=== PATIENT | male | born 1945 | race Hispanic/Latino ===

== ENCOUNTER 2018-12-13 11:38 | Emergency (ER) | payer MEDICARE, OTHER ==
--- OUTSIDE RECORDS SUMMARY | 2018-12-13 11:40 | XMS REPORT ---
:1945 [facility] Address [address] [place] [address] [address] [place] [address] Care Team Providers Name Role Phone Unavailable Unavailable Unavailable Problems This patient has no known problems. Allergies, Adverse Reactions, Alerts This patient has no known allergies or adverse reactions. Medications This patient has no known medications.
[2018-12-13] MEDS ORDERED: NA CHLORIDE 0.9% 1,000 ML ONE (12:11)
--- NOTE | 2018-12-13 12:26 | RAD REPORT ---
EXAM DESCRIPTION: CT - Head Brain Wo Cont - 12/13/2018 12:18 pm CLINICAL HISTORY: Dizziness COMPARISON: None. TECHNIQUE: Computed axial tomography of the head was obtained. IV contrast was not requested. All CT scans are performed using dose optimization technique as appropriate and may include automated exposure control or mA/KV adjustment according to patient size. FINDINGS: An intracranial bleed is not seen . The ventricles are normal in caliber. No extra-axial fluid collection is noted. Fluid within the sinuses/ mastoids is not seen. IMPRESSION: No acute intracranial abnormality is seen. If patient's symptoms persist MRI of the bra in would be recommended.
[2018-12-13 12:28] LABS: Absolute Lymphocytes (CBC) 0.6 K/uL (0.7-4.9); Absolute Monocytes 0.2 K/uL (0.1-1.3); Absolute Neutrophil 2.1 K/uL (1.8-8.0); Basophils % 0.3 % (0-1.3); Hematocrit 43.8 % (39.6-49.0); Lymphocytes % 21.6 % (15.3-44.8); MPV 9.9 fL (7.6-11.3); Monocytes % 6.1 % (3.3-12.3); RBC Red Blood Cell Count 5.09 M/uL (4.33-5.43)
[2018-12-13 12:43] LABS: Potassium 3.7 mmol/L (3.5-5.1)
[2018-12-13 13:50] LABS: Urine Blood NEGATIVE (NEG); Urine Glucose NEGATIVE (NEG); Urine Protein NEGATIVE (NEG); Urine Specific Gravity 1.005 (1.005-1.030); Urine pH 5.5 (5.0-7.0)
[2018-12-13 14:07] LABS: Urine Bacteria NONE SEEN /HPF (NONE SEEN); Urine Culture Reflex Order NOT NEEDED; Urine RBC <5 /HPF (NONE SEEN)
--- NOTE | 2018-12-13 14:42 | EDPHYS ---
Physician Documentation [facility] Name: Rudy Mirza Age: 73 yrs Sex: Male : 1945 Arrival Date: 12/13/2018 Time: 11:39 Bed 8 Private MD: ED Physician Max Potter HPI: 12/13 13:20 This 73 yrs old Male presents to ER via Wheelchair with complaints of High rn Blood Pressure, Dizziness. 13:20 The patient presents with dizziness, lightheadedness. Onset: The symptoms/episode rn began/occurred this morning. Modifying factors: The symptoms are alleviated by nothing, the symptoms are aggravated by standing up. Severity of symptoms: At their worst the symptoms were mild in the emergency department the symptoms are unchanged. The patient has not experienced similar symptoms in the past. REports dizziness that began this morning, worse with standing/changing position, no fever/cough/chest pain/abd pain. Reports blood sugar has been around 180 lately with increased urination. Drinks a lot of diet coke but not much water. Denies focal weakness. Reports intermittent pain from arthritis and right leg gives him problems. NO head injury. . 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 - Social history:: Smoking status: Patient/guardian denies using tobacco. - Family history:: not pertinent. - Ebola Screening: : Patient negative for fever greater than or equal to 101.5 degrees Fahrenheit, and additional compatible Ebola Virus Disease symptoms Patient denies exposure to infectious person Patient denies travel to an Ebola-affected area in the 21 days before illness onset No symptoms or risks identified at this time. - Hospitalizations: : No recent hospitalization is reported. ROS: 13:20 Constitutional: Negative for fever, chills, and weight loss, Eyes: Negative for injury, rn pain, redness, and discharge, Neck: Negative for injury, pain, and swelling, Cardiovascular: Negative for chest pain, palpitations, and edema, Respiratory: Negative for shortness of breath, cough, wheezing, and pleuritic chest pain, Abdomen/GI: Negative for abdominal pain, nausea, vomiting, diarrhea, and constipation, MS/Extremity: Negative for injury and deformity, Skin: Negative for injury, rash, and discoloration, Neuro: Negative for headache, numbness, tingling, and seizure, + generalized weakness Exam: 13:20 Constitutional: This is a well developed, well nourished patient who is awake, alert, rn and in no acute distress. Head/Face: Normocephalic, atraumatic. Eyes: Pupils equal round and reactive to light, extra-ocular motions intact. Lids and lashes normal. Conjunctiva and sclera are non-icteric and not injected. Cornea within normal limits. Periorbital areas with no swelling, redness, or edema. ENT: dry MM Neck: Trachea midline, no thyromegaly or masses palpated, and no cervical lymphadenopathy. Supple, full range of motion without nuchal rigidity, or vertebral point tenderness. No Meningismus. Cardiovascular: Regular rate and rhythm. No pulse deficits. Respiratory: Lungs have equal breath sounds bilaterally, clear to auscultation. No increased work of breathing, no retractions or nasal flaring. Abdomen/GI: soft, non-tender MS/ Extremity: Pulses equal, no cyanosis. Neurovascular intact. Full, normal range of motion. Equal circumference. Neuro: Awake and alert, GCS 15, oriented to person, place, time, and situation. Cranial nerves II-XII grossly intact. Motor strength 4/5 in all extremities. Sensory grossly intact. Cerebellar exam normal. Slow but normal gait. Vital Signs: 11:59 BP 190 / 87; Pulse 61; Resp 18; Temp 98; Pulse Ox 97% ; Weight 75.3 kg; Height 5 ft. 7 sv in. (170.18 cm); Pain 0/10; 13:15 BP 138 / 63; Pulse 71; Resp 16; Pulse Ox 97% on R/A; iw 11:59 Body Mass Index 26.00 (75.30 kg, 170.18 cm) sv MDM: 11:45 Patient medically screened. rn 14:39 Differential diagnosis: generalized weakness, hypovolemia, idiopathic dizziness, rn near-syncope. Data reviewed: vital signs, nurses notes, lab test result(s), EKG, radiologic studies, CT scan, and as a result, I will discharge patient. Counseling: I had a detailed discussion with the patient and/or guardian regarding: the historical points, exam findings, and any diagnostic results supporting the discharge/admit diagnosis, lab results, radiology results, the need for outpatient follow up, to return to the emergency department if symptoms worsen or persist or if there are any questions or concerns that arise at home. Response to treatment: the patient's symptoms have markedly improved after treatment, and as a result, I will discharge patient. Special discussion: I discussed with the patient/guardian in detail that at this point there is no indication for admission to the hospital. It is understood, however, that if the symptoms persist or worsen the patient needs to return immediately for re-evaluation. ED course: Pt ambulatory, negative w/u, will dc home as dehydration and chronic problems. No focal findings on neuro exam and ct head negative. . 12/13 11:56 Order name: CBC with Diff; Complete Time: 13:20 rn 12/13 11:56 Order name: Basic Metabolic Panel; Complete Time: 13:20 rn 12/13 11:56 Order name: CT Head Brain wo Cont; Complete Time: 12:38 rn 12/13 11:56 Order name: Urine Microscopic Only; Complete Time: 14:09 rn 12/13 12:14 Order name: Glucose, Ancillary Testing; Complete Time: 12:38 EDAK 12/13 13:19 Order name: Urine Dipstick--Ancillary (enter results); Complete Time: 13:53 12/13 11:56 Order name: IV Start; Complete Time: 13:35 rn 12/13 11:56 Order name: EKG; Complete Time: 11:57 rn 12/13 11:56 Order name: EKG - Nurse/Tech; Complete Time: 13:34 rn 12/13 11:56 Order name: Glucose Level; Complete Time: 13:34 rn 12/13 11:56 Order name: Urine Dipstick-Ancillary (obtain specimen); Complete Time: 13:16 rn Administered Medications: 12:31 Drug: NS 0.9% 1000 ml Route: IV; Rate: 1000 ml; Site: right antecubital; iw 13:35 Follow up: Response: No adverse reaction; IV Intake: 1000ml sg Disposition: 12/13/18 14:41 Discharged to Home. Impression: Dizziness and giddiness, Dehydration. - Condition is Stable. - Discharge Instructions: Dehydration, Adult, Dizziness. - Medication Reconciliation Form, Thank You Letter, Antibiotic Education, Prescription Opioid Use form. - Follow up: Private Physician; When: As needed; Reason: Recheck today's complaints, Re-evaluation by your physician. - Problem is new. - Symptoms have improved. Signatures: Dispatcher [employer] EDJacinda Castellano RN RN Serina Arevalo RN RN iw Max Potter MD MD rn Gay, Steven RN sg Corrections: (The following items were deleted from the chart) 14:54 14:41 12/13/2018 14:41 Discharged to Home. Impression: Dizziness and giddiness; iw Dehydration. Condition is Stable. Forms are Medication Reconciliation Form, Thank You Letter, Antibiotic Education, Prescription Opioid Use. Follow up: Private Physician; When: As needed; Reason: Recheck today's complaints, Re-evaluation by your physician. Problem is new. Symptoms have improved. rn
--- NOTE | 2018-12-13 14:42 | ER ---
Nurse's Notes [facility] Name: Rudy Mirza Age: 73 yrs Sex: Male : 1945 Arrival Date: 12/13/2018 Time: 11:39 Bed 8 Private MD: Diagnosis: Dizziness and giddiness;Dehydration Presentation: 12/13 11:43 Presenting complaint: Patient states: HTN, dizziness, right side chest pain, sv generalized weakness, nausea since today. Son reports forgetfulness x 1 month. Pt states his right arm and leg weakness has been going on for 2 months intermittently. Transition of care: patient was not received from another setting of care. Onset of symptoms was December 13, 2018. Initial Sepsis Screen: Does the patient meet any 2 criteria? No. Patient's initial sepsis screen is negative. Does the patient have a suspected source of infection? No. Patient's initial sepsis screen is negative. Care prior to arrival: None. 11:43 Method Of Arrival: Wheelchair sv 11:43 Acuity: KARUNA 2 sv 12:00 Risk Assessment: Do you want to hurt yourself or someone else? Patient reports no iw desire to harm self or others. 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 - Social history:: Smoking status: Patient/guardian denies using tobacco. - Family history:: not pertinent. - Ebola Screening: : Patient negative for fever greater than or equal to 101.5 degrees Fahrenheit, and additional compatible Ebola Virus Disease symptoms Patient denies exposure to infectious person Patient denies travel to an Ebola-affected area in the 21 days before illness onset No symptoms or risks identified at this time. - Hospitalizations: : No recent hospitalization is reported. Screenin:40 Abuse screen: Denies threats or abuse. Denies injuries from another. Nutritional iw screening: No deficits noted. Tuberculosis screening: No symptoms or risk factors identified. 14:54 Fall Risk None identified. iw Assessment: 12:25 General: Appears in no apparent distress. comfortable, well groomed, well developed, sg well nourished, Behavior is calm, cooperative, appropriate for age, quiet. Pain: Denies pain. Neuro: Reports dizziness, headache. Neuro: Level of Consciousness is awake, alert, obeys commands, Oriented to person, place, time, situation, Green[employer] are equal bilaterally Moves all extremities. Full function Gait is steady, Speech is normal, Facial symmetry appears normal. Cardiovascular: Capillary refill is brisk in bilateral fingers Patient's skin is warm and dry. Chest pain is denied. Respiratory: Airway is patent Respiratory effort is even, unlabored, Respiratory pattern is regular, symmetrical. GI: Abdomen is round non-distended, Bowel sounds present X 4 quads. : No signs and/or symptoms were reported regarding the genitourinary system. EENT: No signs and/or symptoms were reported regarding the EENT system. Derm: Skin is intact, is thin, Skin is dry, Skin is normal, Skin temperature is warm. Musculoskeletal: Circulation, motion, and sensation intact. Range of motion: intact in all extremities. 14:10 Reassessment: Patient appears in no apparent distress at this time. Patient and/or iw family updated on plan of care and expected duration. Pain level reassessed. Patient is alert, oriented x 3, equal unlabored respirations, skin warm/dry/pink. pt ambulatory to bathroom with steady gait, family at bedside. Vital Signs: 11:59 BP 190 / 87; Pulse 61; Resp 18; Temp 98; Pulse Ox 97% ; Weight 75.3 kg; Height 5 ft. 7 sv in. (170.18 cm); Pain 0/10; 13:15 BP 138 / 63; Pulse 71; Resp 16; Pulse Ox 97% on R/A; iw 11:59 Body Mass Index 26.00 (75.30 kg, 170.18 cm) sv ED Course: 11:39 Patient arrived in ED. as 11:45 Max Potter MD is Attending Physician. rn 11:58 Triage completed. sv 11:59 Arm band placed on. sv 12:00 Patient has correct armband on for positive identification. iw 12:04 EKG done, by public health technician. reviewed by Max Potter MD. sm3 12:18 CT Head Brain wo Cont In Process Unspecified. EDMS 12:30 Initial lab(s) drawn, by fl, sent to lab. Inserted saline lock: 20 gauge in right iw antecubital area, using aseptic technique. Blood collected. 12:31 Serina Jaramillo, RN is Primary Nurse. iw 14:52 No provider procedures requiring assistance completed. IV discontinued, intact, iw bleeding controlled, No redness/swelling at site. Pressure dressing applied. Administered Medications: 12:31 Drug: NS 0.9% 1000 ml Route: IV; Rate: 1000 ml; Site: right antecubital; iw 13:35 Follow up: Response: No adverse reaction; IV Intake: 1000ml sg Intake: 13:35 IV: 1000ml; Total: 1000ml. sg Outcome: 14:41 Discharge ordered by . rn 14:52 Discharged to home ambulatory, with family. iw 14:52 Condition: good 14:52 Discharge instructions given to patient, Instructed on discharge instructions, follow up and referral plans. Demonstrated understanding of instructions, follow-up care. 14:54 Patient left the ED. iw Signatures: Dispatcher [employer] EDMS Jacinda Jefferson RN RN Stewart Petersen RN RN sg Martinez, Amelia as Williams, Irene, GRZEGORZ LANTIGUA Max Potter MD MD rn Montes, Shakira 3
--- NOTE | 2018-12-13 15:16 | EKG ---
Test Date: 2018-12-13 Test Time: 12:04:18 Administrative Asst: JAYDE MEASUREMENT RESULTS: Intervals: Rate: 53 AR: 156 QRSD: 96 QT: 456 QTc: 427 [place]: P: 14 AR: 156 QRS: 83 T: 44 INTERPRETIVE STATEMENTS: Sinus bradycardia Otherwise normal ECG No previous ECG available for comparison Electronically Signed On 12-13-18 15:15:27 CDT by Joaquin Khan
== END 2018-12-13 14:54 | disposition home or self-care (01) ==
LOC: ER 11:38
DX: R42 Dizziness and giddiness (principal); E86.0 Dehydration; E11.9 Type 2 diabetes mellitus without complications; I10 Essential (primary) hypertension
CPT/HCPCS: 93005; 85025; 80048; 36415; 82962; 70450; 99284; J7030; 81003; 81015

== ENCOUNTER 2019-03-01 09:50 | Emergency (ER) | payer MEDICARE ==
--- OUTSIDE RECORDS SUMMARY | 2019-03-01 09:52 | XMS REPORT ---
:1945 [facility] Address [address] [place] [address] [address]. [address] [place] [address] Care Team Providers Name Role Phone Unavailable Unavailable Unavailable Problems This patient has no known problems. Allergies, Adverse Reactions, Alerts This patient has no known allergies or adverse reactions. Medications This patient has no known medications.
[2019-03-01 10:23] LABS: Basophils % 0.4 % (0-1.3); Eosinophils % 2.5 % (0-4.4); Hematocrit 43.3 % (39.6-49.0); Lymphocytes % 34.3 % (15.3-44.8); MPV 9.8 fL (7.6-11.3); RBC Red Blood Cell Count 5.04 M/uL (4.33-5.43)
[2019-03-01] MEDS ORDERED: ASPIRIN EC 81 MG TAB PO ONE (10:25)
[2019-03-01] MEDS ORDERED: ONDANSETRON 4 MG/2 ML VIAL ONE (10:25)
[2019-03-01 10:39] LABS: ALT/SGPT 113 U/L (12-78); AST/SGOT 98 U/L (15-37); Albumin 3.4 g/dL (3.4-5.0); Alkaline Phosphatase 213 U/L (45-117); BUN Blood Urea Nitrogen 20 mg/dL (7-18); Bicarbonate 26 mmol/L (21-32); Bilirubin Direct 0.2 mg/dL (0-0.2); Bilirubin Total 0.7 mg/dL (0.2-1.0); Glucose Level 153 mg/dL (74-106); NT PRO-BNP 130 pg/mL (<125); Potassium 4.1 mmol/L (3.5-5.1); Protein, Total 7.7 g/dL (6.4-8.2); Sodium Level 141 mmol/L (136-145); Troponin (Emerg Dept Use Only) < 0.02 ng/mL (0.0-0.045)
--- NOTE | 2019-03-01 11:29 | RAD REPORT ---
EXAM DESCRIPTION: Joey Single View03/01/2019 10:17 am CLINICAL HISTORY: Chest pain COMPARISON: none FINDINGS: A few areas of scarring or subsegmental atelectasis within the lungs Otherwise, the lungs bold appear clear of acute infiltrate. The heart is borderline enlarged. Postsur gical changes involve the chest
--- NOTE | 2019-03-01 11:53 | EDPHYS ---
Physician Documentation [facility] Name: Rudy Mirza Age: 73 yrs Sex: Male : 1945 Arrival Date: 03/01/2019 Time: 09:52 Bed 4 Private MD: ED Physician Mich Beal HPI: 03/01 10:09 This 73 yrs old Male presents to ER via Wheelchair with complaints of Chest kb Pain, Nausea. 10:09 The patient or guardian reports chest pain that is located primarily in the anterior kb chest wall, left. Onset: yesterday. The pain radiates to the left shoulder, right side of chest. Associated signs and symptoms: Pertinent positives: nausea, Pertinent negatives: abdominal pain, cough, diaphoresis, dizziness, headache, lower extremity pain, lower extremity swelling, lightheadedness, near syncope, palpitations, recent travel, shortness of breath, syncope, vomiting. The chest pain is described as a heaviness. Duration: The patient or guardian reports a single episode, that is still ongoing. Modifying factors: The symptoms are alleviated by nothing. the symptoms are aggravated by nothing. Severity of pain: At its worst the pain was moderate in the emergency department the pain is unchanged. The patient has experienced similar episodes in the past. The patient has not recently seen a physician. Pt reports chest pain that started yesterday. STates he had his first MN at age 42 and his father of a MN at age 43. Has had 3 bypasses and 6 stents placed in the past. Pt reports this pain is similar to pain he has had before. . 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 - Social history:: Smoking status: Patient/guardian denies using tobacco. - Ebola Screening: : Patient denies travel to an Ebola-affected area in the 21 days before illness onset. ROS: 10:08 Constitutional: Negative for fever, chills, and weight loss, ENT: Negative for injury, kb pain, and discharge, Neck: Negative for injury, pain, and swelling, Respiratory: Negative for shortness of breath, cough, wheezing, and pleuritic chest pain, Back: Negative for injury and pain, MS/Extremity: Negative for injury and deformity, Skin: Negative for injury, rash, and discoloration, Neuro: Negative for headache, weakness, numbness, tingling, and seizure. 10:08 Cardiovascular: Positive for chest pain, Negative for edema, orthopnea, palpitations, paroxysmal nocturnal dyspnea. 10:08 Abdomen/GI: Positive for nausea. Exam: 10:08 Constitutional: This is a well developed, well nourished patient who is awake, alert, kb and in no acute distress. Head/Face: Normocephalic, atraumatic. ENT: Nares patent. No nasal discharge, no septal abnormalities noted. Tympanic membranes are normal and external auditory canals are clear. Oropharynx with no redness, swelling, or masses, exudates, or evidence of obstruction, uvula midline. Mucous membranes moist. Neck: Trachea midline, no thyromegaly or masses palpated, and no cervical lymphadenopathy. Supple, full range of motion without nuchal rigidity, or vertebral point tenderness. No Meningismus. Chest/axilla: Normal chest wall appearance and motion. Nontender with no deformity. No lesions are appreciated. Cardiovascular: Regular rate and rhythm with a normal S1 and S2. No gallops, murmurs, or rubs. Normal PMI, no JVD. No pulse deficits. Respiratory: Lungs have equal breath sounds bilaterally, clear to auscultation and percussion. No rales, rhonchi or wheezes noted. No increased work of breathing, no retractions or nasal flaring. Abdomen/GI: Soft, non-tender, with normal bowel sounds. No distension or tympany. No guarding or rebound. No evidence of tenderness throughout. Back: No spinal tenderness. No costovertebral tenderness. Full range of motion. Skin: Warm, dry with normal turgor. Normal color with no rashes, no lesions, and no evidence of cellulitis. MS/ Extremity: Pulses equal, no cyanosis. Neurovascular intact. Full, normal range of motion. Neuro: Awake and alert, GCS 15, oriented to person, place, time, and situation. Cranial nerves II-XII grossly intact. Motor strength 5/5 in all extremities. Sensory grossly intact. Cerebellar exam normal. Normal gait. Vital Signs: 09:57 BP 166 / 83; Pulse 63; Resp 18; Temp 97.7; Pulse Ox 97% on R/A; Weight 78.02 kg (R); aj1 Height 5 ft. 7 in. (170.18 cm) (R); Pain 5/10; 10:04 BP 167 / 73; Pulse 57; Resp 18; Pulse Ox 96% on R/A; hj 11:08 BP 117 / 65; Pulse 57; Resp 18; Pulse Ox 96% on R/A; hj 11:53 BP 101 / 49; Pulse 49; Resp 18; Pulse Ox 94% on R/A; hj 12:39 BP 119 / 68; Pulse 48; Resp 18; Pulse Ox 98% on 2 lpm NC; hj 13:23 BP 118 / 70; Pulse 50; Resp 18; Pulse Ox 97% on R/A; hj 09:57 Body Mass Index 26.94 (78.02 kg, 170.18 cm) aj1 MDM: 09:58 Patient medically screened. kb 10:09 Data reviewed: vital signs, nurses notes. Data interpreted: Pulse oximetry: on room air kb is 96 %. Interpretation: normal. 10:17 The patient was given aspirin in the Emergency Department. PAULETTE Risk Score: 1 - kb patient's age is greater or equal to 65 years, 1- Known CAD, 1 - ASA use in past 7 days, TOTAL SCORE = 3. 10:57 Counseling: I had a detailed discussion with the patient and/or guardian regarding: the kb historical points, exam findings, and any diagnostic results supporting the discharge/admit diagnosis, lab results, radiology results, the need for further work-up and treatment in the hospital. Physician consultation: Latasha Larsen MD was contacted at 11:00, regarding admission, to the telemetry unit. patient's condition, would like cardiology consulted about admission first. ED course: Pain resolved after nitro. . ED course: HEART score 5. . 11:17 Physician consultation: Ko Oseguera MD was called at 11:06, message left with kb answering service. 12:40 ED course: Dr Oseguera wants troponin repeated now. If still normal pt to be discharged kb home to follow up as outpatient.. 13:12 Counseling: I had a detailed discussion with the patient and/or guardian regarding: the kb need for outpatient follow up, a automatic head sawyer, a family practitioner, to return to the emergency department if symptoms worsen or persist or if there are any questions or concerns that arise at home. 03/01 10:05 Order name: Basic Metabolic Panel kb 03/01 10:05 Order name: CBC with Diff; Complete Time: 10:39 kb 03/01 10:05 Order name: LFT's; Complete Time: 10:40 kb 03/01 10:05 Order name: Magnesium; Complete Time: 10:40 kb 03/01 10:05 Order name: NT PRO-BNP; Complete Time: 10:40 kb 03/01 10:05 Order name: PT-INR; Complete Time: 10:39 kb 03/01 10:05 Order name: Troponin (emerg Dept Use Only); Complete Time: 10:40 kb 03/01 10:05 Order name: XRAY Chest (1 view); Complete Time: 11:43 kb 03/01 10:06 Order name: Basic Metabolic Panel; Complete Time: 10:40 EDMS 03/01 11:26 Order name: Urine Dipstick--Ancillary (enter results); Complete Time: 13:17 hb 03/01 12:39 Order name: Troponin (emerg Dept Use Only); Complete Time: 13:11 kb 03/01 10:05 Order name: EKG; Complete Time: 10:07 kb 03/01 10:05 Order name: Cardiac monitoring; Complete Time: 10:07 kb 03/01 10:05 Order name: EKG - Nurse/Tech; Complete Time: 10:07 kb 03/01 10:05 Order name: IV Saline Lock; Complete Time: 10:06 kb 03/01 10:05 Order name: Labs collected and sent; Complete Time: 10:06 kb 03/01 10:05 Order name: O2 Per Protocol; Complete Time: 10:06 kb 03/01 10:05 Order name: O2 Sat Monitoring; Complete Time: 10:06 kb 03/01 11:18 Order name: Urine Dipstick-Ancillary (obtain specimen); Complete Time: 11:19 kb 03/01 12:39 Order name: EKG; Complete Time: 12:39 kb 03/01 12:39 Order name: EKG - Nurse/Tech; Complete Time: 12:39 kb Administered Medications: 10:05 Drug: Aspirin Chewable Tablet 243 mg Route: PO; 10:31 Follow up: Response: No adverse reaction hj 10:06 Drug: Zofran 4 mg Route: IVP; Site: right antecubital; hj 10:31 Follow up: Response: No adverse reaction hj 10:44 Drug: Nitroglycerin 0.4 mg Route: Sublingual; hj 11:12 Follow up: Response: No adverse reaction; Pain is decreased hj Disposition: 18:02 Co-signature as Attending Physician, Mich Beal MD. Disposition: 03/01/19 13:12 Discharged to Home. Impression: Chest pain, unspecified. - Condition is Stable. - Discharge Instructions: Nonspecific Chest Pain, [id number]. - Medication Reconciliation Form, Thank You Letter, Antibiotic Education, Prescription Opioid Use form. - Follow up: Emergency Department; When: As needed; Reason: Worsening of condition. Follow up: Private Physician; When: 2 - 3 days; Reason: Recheck today's complaints, Continuance of care, Re-evaluation by your physician. Signatures: Dispatcher [employer] EDAR Chandni Foster, ROLL CLAMP OPERATOR-C ROLL CLAMP OPERATOR-Ckb Nisha Pfeiffer RN RN aj1 Chuy Justin RN RN Paradise Vera RN RN Mich Beal MD MD Corrections: (The following items were deleted from the chart) 13:12 11:52 Hospitalization Ordered by Latasha Larsen MD for Observation. Preliminary kb diagnosis is Chest pain, unspecified. Bed requested for Telemetry/MedSurg (observation). Status is Observation. Condition is Stable. Problem is new. Symptoms have improved. UTI on Admission? No. kb 13:28 13:12 03/01/2019 13:12 Discharged to Home. Impression: Chest pain, unspecified. Condition is Stable. Forms are Medication Reconciliation Form, Thank You Letter, Antibiotic Education, Prescription Opioid Use. Follow up: Emergency Department; When: As needed; Reason: Worsening of condition. Follow up: Private Physician; When: 2 - 3 days; Reason: Recheck today's complaints, Continuance of care, Re-evaluation by your physician. kb
--- NOTE | 2019-03-01 11:53 | ER ---
Nurse's Notes [facility] Name: Rudy Mirza Age: 73 yrs Sex: Male : 1945 Arrival Date: 03/01/2019 Time: 09:52 Bed 4 Private MD: Diagnosis: Chest pain, unspecified Presentation: 03/01 09:57 Presenting complaint: Patient states: Left sided chest pain, nausea, and numbness to aj1 the left arm that started yesterday at 1500. Transition of care: patient was not received from another setting of care. Onset of symptoms was February 28, 2019 at 15:00. Risk Assessment: Do you want to hurt yourself or someone else? Patient reports no desire to harm self or others. Initial Sepsis Screen: Does the patient meet any 2 criteria? No. Patient's initial sepsis screen is negative. Does the patient have a suspected source of infection? No. Patient's initial sepsis screen is negative. Care prior to arrival: None. 09:57 Method Of Arrival: Wheelchair aj1 09:57 Acuity: KARUNA 2 aj1 Triage Assessment: 09:57 General: Appears uncomfortable, Behavior is calm, cooperative, appropriate for age. aj1 Pain: Complains of pain in anterior aspect of left upper chest. Neuro: Level of Consciousness is awake, alert, obeys commands. Cardiovascular: Reports chest pain. Respiratory: Airway is patent Respiratory effort is even, unlabored, Respiratory pattern is regular, symmetrical. Derm: Skin is pale. 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 - Social history:: Smoking status: Patient/guardian denies using tobacco. - Ebola Screening: : Patient denies travel to an Ebola-affected area in the 21 days before illness onset. Screenin:58 Abuse screen: Denies threats or abuse. Denies injuries from another. Nutritional hb screening: No deficits noted. Tuberculosis screening: No symptoms or risk factors identified. Fall Risk None identified. Assessment: 09:59 General: Appears in no apparent distress. uncomfortable, Behavior is calm, cooperative, hj appropriate for age. Pain: Complains of pain in chest Pain radiates to back and left arm Pain began 1 day ago. Neuro: Level of Consciousness is awake, alert, obeys commands, Oriented to person, place, time, situation, Appropriate for age. Cardiovascular: Capillary refill < 3 seconds Patient's skin is warm and dry. Respiratory: Airway is patent Respiratory effort is even, unlabored, Respiratory pattern is regular, symmetrical. GI: No signs and/or symptoms were reported involving the gastrointestinal system. : No signs and/or symptoms were reported regarding the genitourinary system. EENT: No signs and/or symptoms were reported regarding the EENT system. Derm: No signs and/or symptoms reported regarding the dermatologic system. Musculoskeletal: No signs and/or symptoms reported regarding the musculoskeletal system. 10:25 Reassessment: faxed order to pharm for nitro 0.4 mg;. hj 11:53 Reassessment: Patient and/or family updated on plan of care and expected duration. Pain hj level reassessed. Patient is alert, oriented x 3, equal unlabored respirations, skin warm/dry/pink. pt for admit;. 12:38 Reassessment: Patient and/or family updated on plan of care and expected duration. Pain hj level reassessed. Patient is alert, oriented x 3, equal unlabored respirations, skin warm/dry/pink. awaiting room placement;. Vital Signs: 09:57 BP 166 / 83; Pulse 63; Resp 18; Temp 97.7; Pulse Ox 97% on R/A; Weight 78.02 kg (R); aj1 Height 5 ft. 7 in. (170.18 cm) (R); Pain 5/10; 10:04 BP 167 / 73; Pulse 57; Resp 18; Pulse Ox 96% on R/A; hj 11:08 BP 117 / 65; Pulse 57; Resp 18; Pulse Ox 96% on R/A; hj 11:53 BP 101 / 49; Pulse 49; Resp 18; Pulse Ox 94% on R/A; hj 12:39 BP 119 / 68; Pulse 48; Resp 18; Pulse Ox 98% on 2 lpm NC; hj 13:23 BP 118 / 70; Pulse 50; Resp 18; Pulse Ox 97% on R/A; hj 09:57 Body Mass Index 26.94 (78.02 kg, 170.18 cm) aj1 ED Course: 09:52 Patient arrived in ED. mr 09:58 Chandni Foster FNP-C [facility]. kb 09:58 Mich Beal MD is Attending Physician. kb 09:58 Triage completed. aj1 09:58 Arm band placed on. hb 09:59 Chuy Justin RN is Primary Nurse. hj 10:02 Patient has correct armband on for positive identification. Placed in gown. Bed in low hj position. Call light in reach. Side rails up X2. Adult w/ patient. 10:02 night monitor on. Pulse ox on. NIBP on. hj 10:02 Patient maintains SpO2 saturation greater than 95% on room air. hj 10:02 Initial lab(s) drawn, by ED staff, sent to lab. Inserted saline lock: 22 gauge in right hj antecubital area, using aseptic technique. Blood collected. 10:16 XRAY Chest (1 view) In Process Unspecified. EDMS 11:52 Latasha Larsen MD is Hospitalizing Provider. kb 12:50 Troponin (emerg Dept Use Only) Sent. hj 13:22 No provider procedures requiring assistance completed. IV discontinued, intact, hj bleeding controlled, No redness/swelling at site. Pressure dressing applied. Administered Medications: 10:05 Drug: Aspirin Chewable Tablet 243 mg Route: PO; hj 10:31 Follow up: Response: No adverse reaction hj 10:06 Drug: Zofran 4 mg Route: IVP; Site: right antecubital; hj 10:31 Follow up: Response: No adverse reaction hj 10:44 Drug: Nitroglycerin 0.4 mg Route: Sublingual; hj 11:12 Follow up: Response: No adverse reaction; Pain is decreased hj Outcome: 11:52 Decision to Hospitalize by Provider. kb 13:12 Discharge ordered by MD. kb 13:24 Discharged to home ambulatory, with family. hj 13:24 Condition: stable 13:24 Discharge instructions given to patient, family, Instructed on discharge instructions, follow up and referral plans. Demonstrated understanding of instructions, follow-up care. 13:28 Patient left the ED. hj Signatures: Dispatcher [employer] EDAR Chandni Foster FNP-C FNP-Nisha Noel RN RN [facility] Irlanda Champion mr Chuy Justin RN RN Paradise Hough, RN RN hb
[2019-03-01 13:16] LABS: Urine Blood NEGATIVE (NEG); Urine Glucose NEGATIVE (NEG); Urine Protein NEGATIVE (NEG); Urine Specific Gravity 1.015 (1.005-1.030)
--- NOTE | 2019-03-02 09:12 | EKG ---
Test Date: 2019-03-01 Test Time: 10:00:22 Lobster Fisherman: YENNIFER MEASUREMENT RESULTS: Intervals: Rate: 57 DC: 156 QRSD: 94 QT: 452 QTc: 439 [place]: P: 2 DC: 156 QRS: 45 T: 37 INTERPRETIVE STATEMENTS: Sinus bradycardia Otherwise normal ECG Compared to ECG 12/13/2018 12:04:18 No significant changes Electronically Signed On 03-02-19 09:10:47 CDT by Ko Oseguera
--- NOTE | 2019-03-03 10:23 | EKG ---
Test Date: 2019-03-01 Test Time: 12:49:38 Grocery Carrier: TONA MEASUREMENT RESULTS: Intervals: Rate: 48 AK: 148 QRSD: 92 QT: 486 QTc: 434 [place]: P: 114 AK: 148 QRS: 61 T: 66 INTERPRETIVE STATEMENTS: Marked sinus bradycardia Abnormal ECG Compared to ECG 03/01/2019 10:00:22 No significant changes Electronically Signed On 03-03-19 10:24:05 CDT by Joaquin Khan
== END 2019-03-01 13:28 | disposition home or self-care (01) ==
LOC: ER 09:50
DX: R07.9 Chest pain, unspecified (principal); I25.2 Old myocardial infarction; I10 Essential (primary) hypertension; Z95.818 Presence of other cardiac implants and grafts
CPT/HCPCS: 93005 ×2; 85025; 80048; 36415; 83735; 85610; 80076; 81003; 84484 ×2; 83880; 71045; 96374; 99285; J2405

== ENCOUNTER 2019-05-27 09:55 | Observation (INO) | payer MEDICARE ==
--- NOTE | 2019-05-27 10:39 | RAD REPORT ---
EXAM DESCRIPTION: RAD - Chest Single View - 05/27/2019 10:32 am CLINICAL HISTORY: CHEST PAIN Chest pain. COMPARISON: Chest Single View dated 03/01/2019 FINDINGS: Portable technique limits examination quality. Linear scarring is present in both lungs. The lungs are underinflated and mildly emphysematous. The h eart is upper limit of normal in size. No displaced fractures.Sternotomy wires present. IMPRESSION: No acute intrathoracic process suspected.
[2019-05-27 10:45] LABS: Urine Blood TRACE (NEG); Urine Glucose NEGATIVE (NEG); Urine Protein NEGATIVE (NEG); Urine Specific Gravity 1.025 (1.005-1.030); Urine pH 5.5 (5.0-7.0)
[2019-05-27] MEDS ORDERED: NA CHLORIDE 0.9% 1,000 ML ONE (10:55)
[2019-05-27] MEDS ORDERED: FAMOTIDINE 20 MG/2 ML VIAL IV ONE (10:55)
[2019-05-27] MEDS ORDERED: ONDANSETRON 4 MG/2 ML VIAL ONE (10:55)
[2019-05-27 11:07] LABS: Absolute Lymphocytes (CBC) 0.9 K/uL (0.7-4.9); Basophils % 0.4 % (0-1.3); Lymphocytes % 28.4 % (15.3-44.8); RBC Red Blood Cell Count 4.85 M/uL (4.33-5.43)
--- NOTE | 2019-05-27 11:08 | EDPHYS ---
Physician Documentation [facility] Name: Rudy Mirza Age: 74 yrs Sex: Male : 1945 Arrival Date: 05/27/2019 Time: 09:57 Bed 17 Private MD: SASKIA SAVAGE ED Physician Wayne Ernandez HPI: 05/27 10:46 This 74 yrs old Male presents to ER via Ambulatory with complaints of Chest nakul Pain, Nausea/Vomiting. 10:46 The patient or guardian reports chest pain that is located primarily in the anterior nakul chest wall, bilaterally. Onset: 2 day(s) ago. The pain does not radiate. Associated signs and symptoms: The patient has no apparent associated signs or symptoms. The chest pain is described as a pressure. Duration: The patient or guardian reports a single episode, that is still ongoing, but improving. Modifying factors: The symptoms are alleviated by nothing. the symptoms are aggravated by activity. Severity of pain: At its worst the pain was mild in the emergency department the pain is unchanged. The patient has not experienced similar symptoms in the past. 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 - Social history:: Smoking status: Patient/guardian denies using tobacco. - Ebola Screening: : No symptoms or risks identified at this time. - Family history:: not pertinent. ROS: 10:46 Constitutional: Negative for fever, chills, and weight loss, Eyes: Negative for injury, nakul pain, redness, and discharge, ENT: Negative for injury, pain, and discharge, Neck: Negative for injury, pain, and swelling, Respiratory: Negative for shortness of breath, cough, wheezing, and pleuritic chest pain, Back: Negative for injury and pain, : Negative for injury, bleeding, discharge, and swelling, MS/Extremity: Negative for injury and deformity, Skin: Negative for injury, rash, and discoloration, Neuro: Negative for headache, weakness, numbness, tingling, and seizure, Psych: Negative for depression, anxiety, suicide ideation, homicidal ideation, and hallucinations, Allergy/Immunology: Negative for hives, rash, and allergies, Endocrine: Negative for neck swelling, polydipsia, polyuria, polyphagia, and marked weight changes, Hematologic/Lymphatic: Negative for swollen nodes, abnormal bleeding, and unusual bruising. 10:46 Cardiovascular: Positive for chest pain. 10:46 Abdomen/GI: Positive for abdominal pain, nausea and vomiting. Exam: 10:46 Constitutional: This is a well developed, well nourished patient who is awake, alert, nakul and in no acute distress. Head/Face: Normocephalic, atraumatic. Eyes: Pupils equal round and reactive to light, extra-ocular motions intact. Lids and lashes normal. Conjunctiva and sclera are non-icteric and not injected. Cornea within normal limits. Periorbital areas with no swelling, redness, or edema. ENT: Nares patent. No nasal discharge, no septal abnormalities noted. Tympanic membranes are normal and external auditory canals are clear. Oropharynx with no redness, swelling, or masses, exudates, or evidence of obstruction, uvula midline. Mucous membranes moist. Neck: Trachea midline, no thyromegaly or masses palpated, and no cervical lymphadenopathy. Supple, full range of motion without nuchal rigidity, or vertebral point tenderness. No Meningismus. Chest/axilla: Normal chest wall appearance and motion. Nontender with no deformity. No lesions are appreciated. Cardiovascular: Regular rate and rhythm with a normal S1 and S2. No gallops, murmurs, or rubs. Normal PMI, no JVD. No pulse deficits. Respiratory: Lungs have equal breath sounds bilaterally, clear to auscultation and percussion. No rales, rhonchi or wheezes noted. No increased work of breathing, no retractions or nasal flaring. Back: No spinal tenderness. No costovertebral tenderness. Full range of motion. Male : Normal genitalia with no discharge or lesions. Skin: Warm, dry with normal turgor. Normal color with no rashes, no lesions, and no evidence of cellulitis. MS/ Extremity: Pulses equal, no cyanosis. Neurovascular intact. Full, normal range of motion. Neuro: Awake and alert, GCS 15, oriented to person, place, time, and situation. Cranial nerves II-XII grossly intact. Motor strength 5/5 in all extremities. Sensory grossly intact. Cerebellar exam normal. Normal gait. Psych: Awake, alert, with orientation to person, place and time. Behavior, mood, and affect are within normal limits. 10:46 Abdomen/GI: Inspection: abdomen appears normal, Bowel sounds: normal, Palpation: mild abdominal tenderness, in all quadrants, Liver: no appreciated palpable abnormalities, Hernia: not appreciated. Vital Signs: 10:05 BP 123 / 75; Pulse 62; Resp 16; Temp 98.3; Pulse Ox 100% on R/A; Weight 79.38 kg; hb Height 5 ft. 7 in. (170.18 cm); Pain 5/10; 11:30 BP 133 / 65; Pulse 56; Resp 18; Pulse Ox 100% ; aj1 12:30 BP 139 / 76; Pulse 50; Resp 18; Pulse Ox 98% on R/A; aj1 13:30 BP 124 / 62; Pulse 55; Resp 16; Pulse Ox 95% on R/A; aj1 14:30 BP 122 / 68; Pulse 54; Resp 18; Pulse Ox 97% on R/A; aj1 15:30 BP 141 / 64; Pulse 58; Resp 18; Pulse Ox 98% on R/A; aj1 10:05 Body Mass Index 27.41 (79.38 kg, 170.18 cm) hb MDM: 10:06 Patient medically screened. [facility] 10:48 Data reviewed: vital signs, nurses notes, lab test result(s), EKG, radiologic studies, nakul plain films. 05/27 10:07 Order name: Basic Metabolic Panel; Complete Time: 11:29 [facility] 05/27 10:07 Order name: CBC with Diff; Complete Time: 11:29 [facility] 05/27 10:07 Order name: LFT's; Complete Time: 11:29 [facility] 05/27 10:07 Order name: Magnesium; Complete Time: 11:29 [facility] 05/27 10:07 Order name: NT PRO-BNP; Complete Time: 11:29 [facility] 05/27 10:07 Order name: PT-INR; Complete Time: 11:29 [facility] 05/27 10:07 Order name: Troponin (emerg Dept Use Only); Complete Time: 11:29 [facility] 05/27 10:07 Order name: XRAY Chest (1 view); Complete Time: 11:29 [facility] 05/27 10:07 Order name: Lipase; Complete Time: 11:29 [facility] 05/27 10:07 Order name: Urine Culture [facility] 05/27 10:25 Order name: Urine Dipstick--Ancillary (enter results); Complete Time: 11:29 05/27 11:43 Order name: CT Abd/Pelvis - PO and IV Contrast; Complete Time: 14:42 [facility] 05/27 10:07 Order name: EKG; Complete Time: 10:09 [facility] 05/27 10:07 Order name: Cardiac monitoring; Complete Time: 10:22 [facility] 05/27 10:07 Order name: EKG - Nurse/Tech; Complete Time: 11:48 [facility] 05/27 10:07 Order name: IV Saline Lock; Complete Time: 11:10 [facility] 05/27 10:07 Order name: Labs collected and sent; Complete Time: 11:10 [facility] 05/27 10:07 Order name: O2 Per Protocol; Complete Time: 11:10 [facility] 05/27 10:07 Order name: O2 Sat Monitoring; Complete Time: 11:10 [facility] 05/27 10:07 Order name: Urine Dipstick-Ancillary (obtain specimen); Complete Time: 10:22 [facility] 05/27 15:07 Order name: Diet Regular; Complete Time: 15:08 kj1 Administered Medications: 11:09 Drug: NS 0.9% 500 ml Route: IV; Rate: bolus; Site: right forearm; aj1 15:41 Follow up: IV Status: Completed infusion; IV Intake: 500ml aj1 11:09 Drug: NS 0.9% 1000 ml Route: IV; Rate: 125 ml/hr; Site: right forearm; aj1 15:41 Follow up: IV Status: Completed infusion; IV Intake: 500ml aj1 11:09 Drug: Zofran 4 mg Route: IVP; Site: right forearm; aj1 15:42 Follow up: Response: No adverse reaction aj1 11:09 Drug: Pepcid 20 mg Route: IVP; Site: right forearm; aj1 15:42 Follow up: Response: No adverse reaction aj1 14:42 Drug: Tylenol 650 mg Route: PO; jl7 15:42 Follow up: Response: No adverse reaction aj1 Disposition: 05/27/19 11:07 Hospitalization ordered by Gabino Hussein for Inpatient Admission. Preliminary diagnosis are Chest pain, unspecified, Vomiting, Type 2 diabetes mellitus. - Bed requested for Telemetry/MedSurg (Inpatient). - Status is Inpatient Admission. aj1 - Condition is Fair. - Problem is new. - Symptoms have improved. UTI on Admission? No Signatures: Dispatcher [employer] EDNisha Saldaña RN RN aj1 Naila Briggs RN Wayne Carlin MD MD cha Baxter, Heather, RN RN Shaggy Hernadez RN RN jl7 Corrections: (The following items were deleted from the chart) 13:30 11:07 Hospitalization Ordered by Gabino Hussein DO for Inpatient Admission. Preliminary diagnosis is Chest pain, unspecified; Vomiting; Type 2 diabetes mellitus. Bed requested for Telemetry/MedSurg (Inpatient). Status is Inpatient Admission. Condition is Fair. Problem is new. Symptoms have improved. UTI on Admission? No. nakul 15:43 13:30 05/27/2019 11:07 Hospitalization Ordered by Gabino Hussein DO for Inpatient aj1 Admission. Preliminary diagnosis is Chest pain, unspecified; Vomiting; Type 2 diabetes mellitus. Bed requested for Telemetry/MedSurg (Inpatient). Status is Inpatient Admission. Condition is Fair. Problem is new. Symptoms have improved. UTI on Admission? No. dw
--- NOTE | 2019-05-27 11:08 | ER ---
Nurse's Notes [facility] Name: Rudy Mirza Age: 74 yrs Sex: Male : 1945 Arrival Date: 05/27/2019 Time: 09:57 Bed 17 Private MD: SASKIA SAVAGE Diagnosis: Chest pain, unspecified;Vomiting;Type 2 diabetes mellitus Presentation: 05/27 10:04 Presenting complaint: Left sided chest pressure and nausea x 2 days. Transition of hb care: patient was not received from another setting of care. Onset of symptoms was May 26, 2019. Risk Assessment: Do you want to hurt yourself or someone else? Patient reports no desire to harm self or others. Initial Sepsis Screen: Does the patient meet any 2 criteria? No. Patient's initial sepsis screen is negative. Does the patient have a suspected source of infection? No. Patient's initial sepsis screen is negative. Care prior to arrival: None. 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 - Social history:: Smoking status: Patient/guardian denies using tobacco. - Ebola Screening: : No symptoms or risks identified at this time. - Family history:: not pertinent. Screenin:30 Abuse screen: Denies threats or abuse. Denies injuries from another. Nutritional aj1 screening: No deficits noted. Tuberculosis screening: No symptoms or risk factors identified. 15:36 Fall Risk No fall in past 12 months (0 pts). No secondary diagnosis (0 pts). IV access aj1 (20 points). Ambulatory Aid- None/Bed Rest/Nurse Assist (0 pts). Gait- Normal/Bed Rest/Wheelchair (0 pts) Mental Status- Oriented to own ability (0 pts). Total Rice Fall Scale indicates No Risk (0-24 pts). Assessment: 10:30 General: Appears in no apparent distress. comfortable, Reports. Pain: Complains of pain aj1 in chest Pain does not radiate. Pain currently is 8 out of 10 on a pain scale. Quality of pain is described as sharp, Pain began 2-3 days ago. Is continuous. Neuro: Level of Consciousness is awake, alert, obeys commands, Oriented to person, place, time, situation. Cardiovascular: Reports chest pain, nausea, Heart tones Patient's skin is warm and dry. Rhythm is regular. Respiratory: Airway is patent Respiratory effort is even, unlabored, Respiratory pattern is regular, symmetrical, Breath sounds are clear bilaterally. GI: Abdomen is flat, non-distended, Last BM was May 26, 2019. Bowel sounds present X 4 quads. Reports nausea. : No signs and/or symptoms were reported regarding the genitourinary system. EENT: No signs and/or symptoms were reported regarding the EENT system. Derm: No signs and/or symptoms reported regarding the dermatologic system. Musculoskeletal: No signs and/or symptoms reported regarding the musculoskeletal system. 11:30 Reassessment: Patient appears in no apparent distress at this time. No changes from aj1 previously documented assessment. Patient and/or family updated on plan of care and expected duration. Pain level reassessed. Patient is alert, oriented x 3, equal unlabored respirations, skin warm/dry/pink. 12:30 Reassessment: Patient appears in no apparent distress at this time. No changes from aj1 previously documented assessment. Patient and/or family updated on plan of care and expected duration. Pain level reassessed. Patient is alert, oriented x 3, equal unlabored respirations, skin warm/dry/pink. 13:38 Reassessment: Patient and/or family updated on plan of care and expected duration. Pain aj1 level reassessed. General: Appears in no apparent distress. comfortable. Neuro: Level of Consciousness is awake, alert, obeys commands. Cardiovascular: Patient's skin is warm and dry. Rhythm is sinus rhythm. Respiratory: Airway is patent Respiratory effort is even, unlabored, Respiratory pattern is regular, symmetrical. GI: Abdomen is non-distended. Derm: No signs and/or symptoms reported regarding the dermatologic system. Skin is pink, warm \T\ dry. normal. Musculoskeletal: No signs and/or symptoms reported regarding the musculoskeletal system. Circulation, motion, and sensation intact. 14:43 Reassessment: Pt c/o COLLINS, ISI notified, see [facility] for orders. jl7 15:36 Reassessment: Patient appears in no apparent distress at this time. No changes from aj1 previously documented assessment. Patient and/or family updated on plan of care and expected duration. Pain level reassessed. Patient is alert, oriented x 3, equal unlabored respirations, skin warm/dry/pink. Vital Signs: 10:05 BP 123 / 75; Pulse 62; Resp 16; Temp 98.3; Pulse Ox 100% on R/A; Weight 79.38 kg; hb Height 5 ft. 7 in. (170.18 cm); Pain 5/10; 11:30 BP 133 / 65; Pulse 56; Resp 18; Pulse Ox 100% ; aj1 12:30 BP 139 / 76; Pulse 50; Resp 18; Pulse Ox 98% on R/A; aj1 13:30 BP 124 / 62; Pulse 55; Resp 16; Pulse Ox 95% on R/A; aj1 14:30 BP 122 / 68; Pulse 54; Resp 18; Pulse Ox 97% on R/A; aj1 15:30 BP 141 / 64; Pulse 58; Resp 18; Pulse Ox 98% on R/A; aj1 10:05 Body Mass Index 27.41 (79.38 kg, 170.18 cm) hb ED Course: 09:57 Patient arrived in ED. as 09:57 SASKIA SAVAGE is Private Physician. as 10:04 Triage completed. hb 10:05 Wayne Ernandez MD is Attending Physician. nakul 10:05 Arm band placed on. hb 10:08 Nisha Pfeiffer, GRZEGORZ is Primary Nurse. aj1 10:12 EKG done, by ob tech. reviewed by Wayne Ernandez MD. at1 10:22 Urine Culture Sent. aj1 10:30 Patient has correct armband on for positive identification. radiation monitor on. Pulse aj1 ox on. NIBP on. 10:30 No provider procedures requiring assistance completed. Patient maintains SpO2 aj1 saturation greater than 95% on room air. 10:34 XRAY Chest (1 view) In Process Unspecified. EDMS 11:07 Gabino Hussein DO is Hospitalizing Provider. nakul 13:26 CT Abd/Pelvis - PO and IV Contrast In Process Unspecified. EDMS 15:35 Report given to GRZEGORZ Thapa on 4th floor. aj1 15:40 Patient admitted, IV remains in place. aj1 Administered Medications: 11:09 Drug: NS 0.9% 500 ml Route: IV; Rate: bolus; Site: right forearm; aj1 15:41 Follow up: IV Status: Completed infusion; IV Intake: 500ml aj1 11:09 Drug: NS 0.9% 1000 ml Route: IV; Rate: 125 ml/hr; Site: right forearm; aj1 15:41 Follow up: IV Status: Completed infusion; IV Intake: 500ml aj1 11:09 Drug: Zofran 4 mg Route: IVP; Site: right forearm; aj1 15:42 Follow up: Response: No adverse reaction aj1 11:09 Drug: Pepcid 20 mg Route: IVP; Site: right forearm; aj1 15:42 Follow up: Response: No adverse reaction aj1 14:42 Drug: Tylenol 650 mg Route: PO; jl7 15:42 Follow up: Response: No adverse reaction aj1 Intake: 15:41 IV: 500ml; Total: 500ml. aj1 15:41 IV: 500ml; Total: 1000ml. aj1 Outcome: 11:07 Decision to Hospitalize by Provider. nakul 15:40 Admitted to Tele accompanied by tech, via wheelchair, with chart. aj1 15:40 Condition: stable 15:40 Discharge instructions given to patient, family, Instructed on the need for admit, Demonstrated understanding of instructions. 15:43 Patient left the ED. aj1 Signatures: Dispatcher [employer] EDNisha Saldaña, RN RN aj1 Wayne Ernandez MD MD cha Martinez, Amelia as Gonzales, Amanda, manager continuous improvement EKG Tat1 Paradise Vera RN RN hb Leal, Jahala, RN RN jl7 Corrections: (The following items were deleted from the chart) :47 11:39 General: Appears in no apparent distress. comfortable, Reports aj1 aj1 11:47 11:39 Pain: Complains of pain in chest Pain does not radiate. Pain currently is 8 out aj1 of 10 on a pain scale. Quality of pain is described as sharp, Pain began 2-3 days ago. Is continuous, Alleviated by aj1 :47 11:39 Neuro: Level of Consciousness is awake, alert, obeys commands, Oriented to aj1 person, place, time, situation, aj1 :47 11:39 Cardiovascular: Reports chest pain, nausea, Heart tones Patient's skin is warm aj1 and dry. Rhythm is regular aj1 11:39 Respiratory: Airway is patent Respiratory effort is even, unlabored, Respiratory aj1 pattern is regular, symmetrical, Breath sounds are clear bilaterally. aj:39 GI: Abdomen is flat, non-distended, Last BM was May 26, 2019. Bowel sounds aj1 present X 4 quads. Reports nausea, aj1 :39 : No signs and/or symptoms were reported regarding the genitourinary system. aj1aj1 11:39 EENT: No signs and/or symptoms were reported regarding the EENT system. aj1 11:39 Derm: No signs and/or symptoms reported regarding the dermatologic system. aj1 aj 11:39 Musculoskeletal: No signs and/or symptoms reported regarding the musculoskeletal aj1 system. aj1
[2019-05-27 11:13] LABS: Protime INR 1.05
[2019-05-27 11:18] LABS: ALT/SGPT 61 U/L (12-78); AST/SGOT 56 U/L (15-37); Albumin 3.6 g/dL (3.4-5.0); Alkaline Phosphatase 196 U/L (45-117); BUN Blood Urea Nitrogen 21 mg/dL (7-18); Bicarbonate 26 mmol/L (21-32); Bilirubin Direct 0.4 mg/dL (0-0.2); Bilirubin Total 1.5 mg/dL (0.2-1.0); Glucose Level 136 mg/dL (74-106); Lipase 120 U/L (73-393); Magnesium 2.2 mg/dL (1.8-2.4); NT PRO-BNP 67 pg/mL (<450); Potassium 4.3 mmol/L (3.5-5.1); Protein, Total 8.2 g/dL (6.4-8.2); Sodium Level 137 mmol/L (136-145); Troponin (Emerg Dept Use Only) < 0.02 ng/mL (0.0-0.045)
--- NOTE | 2019-05-27 12:11 | EKG ---
Test Date: 2019-05-27 Test Time: 10:08:27 Programming Engineer: CHARLY MEASUREMENT RESULTS: Intervals: Rate: 58 MO: 160 QRSD: 94 QT: 446 QTc: 437 [place]: P: 11 MO: 160 QRS: 80 T: 50 INTERPRETIVE STATEMENTS: Sinus bradycardia Otherwise normal ECG Compared to ECG 03/01/2019 12:49:38 No significant changes Electronically Signed On 05-27-19 12:10:08 CDT by Ko Oseguera
--- NOTE | 2019-05-27 13:19 | P.HP ---
Certification for Inpatient Patient admitted to: Observation With expected LOS: <2 Midnights Patient will require the following post-hospital care: None Practitioner: I am a practitioner with admitting privileges, knowledge of patient current condition, hospital course, and medical plan of care. Services: Services provided to patient in accordance with Admission requirements found in Title 42 Section 412.3 of the Code of Federal Regulations Patient History Date of Service: 05/27/19 Primary Care Provider: Dr. Grijalva([facility]); Cardiology-Dr. Dooley([facility]) Reason for admission: Chest pain History of Present Illness: 74-year-old male with history of hypertension, diabetes mellitus type 2 insulin dependent, CAD with prior CABG and stents, hyperlipidemia. Patient reports chest pain over the last 2 days. It comes and goes. It is mainly to the left side. It is associated with nausea. No significant shortness of breath noted. No palpitations noted. Patient denies any abdominal pain. Patient reports history of CABG x3 vessel 25 years ago. He has had 4 stents placed since that time. Last stent placed about 6-12 months ago at [facility]. He had reported that his biomedical equipment support specialist wanted him to have a stress test recently. In the ER patient evaluated. No significant ST changes noted. Initial troponin less than 0.02. Sodium 137, potassium 4.3, BUN of 21, creatinine 1.0 with a GFR 73. Glucose 136. Urinalysis and chest x-ray unremarkable. CBC stable. Total bilirubin 1.5, AST 56. Lipase within normal range. CT chest pending at this time. Patient admitted for further evaluation. When I saw the patient in the ER, his chest pain improved including nausea. He was given medication for nausea in the ER. Patient overall stable. Home medications list reviewed: Yes - Past Medical/Surgical History Diabetic: Yes -: Diabetes mellitus type 2 insulin dependent -: Hypertension -: Hyperlipidemia -: CAD, prior CABG-3 vessel, 4 stents -: Alcohol use -: CABG x3 vessels Psychosocial/ Personal History: Patient is . He currently lives with his son. - Family History Father -: Heart disease - Social History Smoking Status: Never smoker Alcohol use: Yes CD- Drugs: No Caffeine use: Yes Place of Residence: Home Review of Systems General: Unremarkable Eyes: Unremarkable ENT: Unremarkable Respiratory: Unremarkable Cardiovascular: Chest Pain, As per HPI Gastrointestinal: Nausea, Vomiting, As per HPI Genitourinary: Unremarkable Musculoskeletal: Unremarkable Integumentary: Unremarkable Neurological: Unremarkable Lymphatics: Unremarkable Physical Examination - Physical Exam General: Alert, In no apparent distress, Oriented x3, Cooperative HEENT: Atraumatic, Normocephalic, PERRLA, Mucous membr. moist/pink Neck: Supple, No Thyromegaly Respiratory: Clear to auscultation bilaterally, Normal air movement Cardiovascular: Normal pulses, Regular rate/rhythm Gastrointestinal: Normal bowel sounds, Soft and benign, Non-distended, No ascites, No tenderness, No masses, No rebound, No guarding Musculoskeletal: No erythema, No tenderness, No warmth Integumentary: No tenderness/swelling, No erythema, No warmth, No cyanosis Neurological: Normal speech, Normal strength at 5/5 x4 extr, Normal tone, Normal affect Lymphatics: No axilla or inguinal lymphadenopathy - Studies Laboratory Data (last 24 hrs) 05/27/19 10:48: PT 12.4, INR 1.05 05/27/19 10:48: WBC 3.1 L, Hgb 14.7, Hct 43.0, Plt Count 163 05/27/19 10:48: Sodium 137, Potassium 4.3, BUN 21 H, Creatinine 1.00, Glucose 136 H, Magnesium 2.2, Total Bilirubin 1.5 H, AST 56 H, ALT 61, Alkaline Phosphatase 196 H, Lipase 120 Assessment and Plan - Plan Impression: Chest pain with history of CAD/CABG x3 vessel/4 prior cardiac stents Nausea suspect GERD Hypertension Hyperlipidemia Diabetes mellitus type 2 insulin dependent Plan: Chest pain with history of CAD/CABG x3 vessel/4 prior cardiac stents: Patient will be admitted for further evaluation and treatment. Will continue to monitor telemetry and cardiac enzymes. Will order echocardiogram. Cardiology consulted to further evaluate. Will order cardiac stress test for the morning to further evaluate. Aspirin, DVT prophylaxis-Lovenox, Lipitor and blood pressure medication. Anticipate discharge within the next 24 hr pending clinical improvement and cardiac workup. Nausea suspect GERD: Will provide medication for nausea. CT abdomen to be done to further evaluate. Protonix 40 mg daily. Hypertension: Provide medication. Will need to restart home medication Hyperlipidemia: Will check fasting lipid panel. Continued Diabetes mellitus type 2 insulin dependent: Will provide insulin sliding scale and monitor Accu-Cheks. Discharge Plan: Home Plan to discharge in: 24 Hours - Advance Directives Does patient have a Living Will: No Does patient have a Durable POA for Healthcare: No - Code Status/Comfort Care Code Status Assessed: Yes (Patient is full code) Time Spent Managing Pts Care (In Minutes): 55
--- NOTE | 2019-05-27 13:36 | RAD REPORT ---
EXAM DESCRIPTION: CTAbdomen Pelvis W Contrast - 05/27/2019 1:25 pm CLINICAL HISTORY: Abdominal pain. ABD PAIN COMPARISON: No comparisons TECHNIQUE: Biphasic CT imaging of the abdomen and pelvis was performed with 100 ml non-ionic IV cont rast. All CT scans are performed using dose optimization technique as appropriate and may include automated exposure control or mA/KV adjustment according to patient size. FINDINGS: The lung bases are clear.Small hiatal hernia. The liver, spleen, pancreas, adrenal glands are within normal limits. Renal cysts are present bilater ally, benign in appearance. No bowel obstruction, free air, free fluid or abscess. Moderate stool is present in the rectum. Promi nent diverticulosis coli seen involving the descending colon and sigmoid colon without evidence of di verticulitis. The appendix is not identified as a discrete structure, however, no secondary findings of appendicitis are identified. No evidence of significant lymphadenopathy. Moderate lumbosacral degenerative changes. IMPRESSION: No acute intra-abdominal or pelvic finding. Prominent diverticulosis coli without diverticulitis seen.
[2019-05-27] MEDS ORDERED: ACETAMINOPHEN 325 MG TABLET ONE (14:38)
[2019-05-27] MEDS ORDERED: NITROGLYCERIN 0.4 MG/TAB SL PRN (15:44)
[2019-05-27] MEDS ORDERED: ACETAMINOPHEN 500 MG TAB PO PRN (15:44)
[2019-05-27] MEDS ORDERED: ONDANSETRON 4 MG/2 ML VIAL IV PRN (15:44)
[2019-05-27 16:08] VITALS: BMI 28.2
[2019-05-27] MEDS: INSULIN -REGULAR HUMAN 50 UNIT/0.5 ML ML SQ SCH ×2 (16:30→20:09)
[2019-05-27] MEDS ORDERED: PNEUMOCOCCAL VACCINE 0.5 ML IMVAC ONE (18:00)
[2019-05-27] MEDS ORDERED: INFLUENZA VACCINE (for 3y+) 0.5 ML DOSE IMVAC ONE (18:00)
[2019-05-27] MEDS: ENOXAPARIN 40 MG/0.4 ML SQ SCH (18:32)
[2019-05-27] MEDS: METOPROLOL TAR 25 MG TAB PO SCH (18:32)
[2019-05-27 19:52] LABS: CKMB Creatine Kinase MB < 1.0 ng/mL (0.3-3.6); Creatine Phosphokinase 29 U/L (39-308); Troponin I < 0.02 ng/mL (0.0-0.045)
[2019-05-27] MEDS ORDERED: ATORVASTATIN 80 MG TAB PO SCH (21:00)
--- NOTE | 2019-05-28 01:12 | CON ---
Date of Consultation: 05/27/[address] Hussein on 05/27/2019. I saw the patient on 05/27/2019. Reason For Consultation: Chest pain. History Of Present Illness: Mr. Mirza is a 74-year-old male, has had a history of CABG 25 years ago in [place], [place] by Dr. Talbert. Since then, he has had 3 stents. He has had a hi story of diabetes, hypertension, dyslipidemia. 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 He came in with sudden onset of nausea, vomiting, and chest pain as well as diapho resis. No shortness of breath. Denied PND, orthopnea, pedal edema, palpitations, or syncope. He no rmally sees Dr. Dooley at [facility]. Patient's symptoms were not exertional. He had a negative chest x-ray. Negative EKG. Negative abdominal and pelvic CT scan. His blood work was normal except for elevated alkaline phosphatase of 196. Past Medical History: As stated above. Allergies: NONE. Review of Systems: Negative. Social History: Negative. Family History: Noncontributory. Medications At Home: Aspirin, Lipitor, insulin, and metoprolol. Physical Examination: Vital Signs: Stable. He was afebrile. HEENT: Negative. Neck: Supple without any bruit, lymphadenopathy, JVD, or thyromegaly. Chest: Clear to auscultation and percussion. Cardiac: Revealed a regular rhythm and rate without any murmurs, gallops, or rubs. Abdomen: Benign. Extremities: Revealed no clubbing, cyanosis, or edema. Diagnostic Data: As stated earlier. Impression And Plan: Atypical chest pain, more likely secondary to viral syndrome and probably gastr ointestinal in origin. Nevertheless, the patient has documented coronary artery disease with CABG an d stents. His bypass was 25 years ago. He has multiple cardiac risk factors including diabetes, hyp ertension, and dyslipidemia. He was going to have a stress test by Dr. Dooley in the next 2-3 months . We will go ahead and do that here while he is in the hospital along with an echocardiogram. We wi ll see what that shows prior to making any final decisions. His diabetes, hypertension, and dyslipid emia are well controlled. Case was discussed with Dr. Hussein. CASEY/ROSSI Voice ID: [id number] Report ID: [id number]
[2019-05-28 04:12] LABS: Albumin 3.4 g/dL (3.4-5.0); Magnesium 2.2 mg/dL (1.8-2.4); Potassium 4.1 mmol/L (3.5-5.1); Protein, Total 7.6 g/dL (6.4-8.2)
[2019-05-28 04:16] LABS: CKMB Creatine Kinase MB < 1.0 ng/mL (0.3-3.6); Creatine Phosphokinase 28 U/L (39-308); Troponin I < 0.02 ng/mL (0.0-0.045)
[2019-05-28] MEDS: METOPROLOL TAR 25 MG TAB PO SCH ×2 (05:47→06:25)
[2019-05-28] MEDS ORDERED: PANTOPRAZOLE 40MG TABLET PO SCH (07:30)
[2019-05-28] MEDS: INSULIN -REGULAR HUMAN 50 UNIT/0.5 ML ML SQ SCH (07:30)
[2019-05-28] MEDS ORDERED: REGADENOSON 0.4 MG/5 ML SYR IV ONE (08:58)
[2019-05-28] MEDS ORDERED: ASPIRIN EC 81 MG TAB PO SCH (09:00)
[2019-05-28 09:03] VITALS: O2SAT 94
--- NOTE | 2019-05-28 09:08 | ECHO ---
HEIGHT: 5 ft 7 in WEIGHT: 175 lb 0 oz DATE OF STUDY: 05/28/[address]: Ko Oseguera MD 2-DIMENSIONAL: YES M.MODE: YES DOPPLER: YES COLOR FLOW: YES TDS: YES PORTABLE: DEFINITY: BUBBLE STUDY: DIAGNOSIS: CHEST PAIN CARDIAC HISTORY: CATHERIZATION: YES SURGERY: YES PROSTHETIC VALVE: NO PACEMAKER: NO MEASUREMENTS (cm) DIASTOLIC (NORMALS) SYSTOLIC (NORMALS) IVSd 0.9 (0.6-1.2) LA Diam 3.6 (1.9-4.0) LVEF 60-69% LVIDd 3.8 (3.5-5.7) LVIDs 2.8 (2.0-3.5) %FS 25% LVPWd 0.9 (0.6-1.2) Ao Diam 3.1 (2.0-3.7) 2 DIMENSIONAL ASSESSMENT: RIGHT ATRIUM: NORMAL LEFT ATRIUM: NORMAL RIGHT VENTRICLE: NORMAL LEFT VENTRICLE: NORMAL TRICUSPID VALVE: NORMAL MITRAL VALVE: NORMAL PULMONIC VALVE: NORMAL AORTIC VALVE: NORMAL PERICARDIAL EFFUSION: NONE AORTIC ROOT: NORMAL LEFT VENTRICULAR WALL MOTION: NORMAL DOPPLER/COLOR FLOW: PHYSIOLOGICAL TRICUSPID REGURGITATION. NORMAL RIGHT VENTRICULAR SYSTOLIC PRESSURE. COMMENTS: NORMAL 2-DIMENSIONAL ECHOCARDIOGRAM WITH DOPPLER. TECHNOLOGIST: LALO LACY
--- NOTE | 2019-05-28 09:36 | TREADPHA ---
DX: CHEST PAIN. HISTORY OF CORNARY ARTERY DISEASE, CORNARY ARTERY BYPASS GRAFT, HYPERTENSION, DIABETES MELLITUS Date of Study: 05/28/2019 Ht: 5 7 Wt: 175 lb 0 oz Consulting Physician: ASHLYN MEDICATIONS: TYLENOL, ASPIRIN, LIPITOR, LOVENOX, NOVOLIN-R, LOPRESSOR, NITROSTAT, ZOFRAN, PROTONIX HISTORY: CORNARY ARTERY BYPASS GRAFT, NON-INSULIN DEPENDENT DIABETES MELLITUS, HYPERTENSION PHYSICIAL EXAMINATION: RESTING B.P.: 134/84 RESTING H.R.: 56 RESTING EKG: SINUS BRADYCARDIA, OTHERWISE NORMAL PROTOCOL: EXERCISE TIME: 3:30 B.P. AT PEAK STRESS: 129/67 IMPRESSION: LEXISCAN STRESS TEST PERFORMED. CARDIOLITE INJECTED PER PROTOCOL. NO SUPRAVENTRICULAR TACHYCARDIA. NO VENTRICULAR TACHYCARDIA. NO ARRHYTHMIAS NOTED. PATIENT DENIED CHEST PAIN. TOLERATED PROCEDURE WELL. PLEASE SEE NUCLEAR MEDICINE REPORT. NON-DIAGNOSTIC ELECTROCARDIOGRAM WITH STRESS.
[2019-05-28] MEDS: ENOXAPARIN 40 MG/0.4 ML SQ SCH (09:45)
--- NOTE | 2019-05-28 10:32 | RAD REPORT ---
EXAM DESCRIPTION: NM - Rest Stress Cardiac Imaging - 05/28/2019 10:02 am CLINICAL HISTORY: Chest pain. COMPARISON: None. TECHNIQUE: The patient was administered approximately 10mCi of Tc 99m Sestamibi prior to resting SPE CT imaging of the heart. The patient was then administered approximately 30 mCi of Tc 99m Sestamibi f ollowing exercise or pharmacologic stress. Multiplanar SPECT images were reviewed. FINDINGS: There is uniformity of radiotracer uptake involving the entire left ventricular myocardiu m on rest and stress images. The left ventricular ejection fraction equals 53% IMPRESSION: Negative for a myocardial perfusion defect
--- NOTE | 2019-05-28 11:56 | P.DS ---
Admission Date: 05/27/19 Discharge Date: 05/28/19 Primary Care Provider: Dr. Grijalva([facility]); Cardiology-Dr. Dooley([facility]) Disposition: ROUTINE DISCHARGE Discharge Condition: GOOD Reason for Admission: Chest pain Consultations: Cardiology-Dr. Oseguera Procedures: CT scan: FINDINGS: The lung bases are clear.Small hiatal hernia. The liver, spleen, pancreas, adrenal glands are within normal limits. Renal cysts are present bilaterally, benign in appearance. No bowel obstruction, free air, free fluid or abscess. Moderate stool is present in the rectum. Prominent diverticulosis coli seen involving the descending colon and sigmoid colon without evidence of diverticulitis. The appendix is not identified as a discrete structure, however, no secondary findings of appendicitis are identified. No evidence of significant lymphadenopathy. Moderate lumbosacral degenerative changes. IMPRESSION: No acute intra-abdominal or pelvic finding. Prominent diverticulosis coli without diverticulitis seen. ECHO: Ejection fraction 56% LEFT VENTRICULAR WALL MOTION: NORMAL DOPPLER/COLOR FLOW: PHYSIOLOGICAL TRICUSPID REGURGITATION. NORMAL RIGHT VENTRICULAR SYSTOLIC PRESSURE. COMMENTS: NORMAL 2-DIMENSIONAL ECHOCARDIOGRAM WITH DOPPLER. Cardiac stress test: FINDINGS: There is uniformity of radiotracer uptake involving the entire left ventricular myocardium on rest and stress images. The left ventricular ejection fraction equals 53% IMPRESSION: Negative for a myocardial perfusion defect Medical Problem List: Chest pain with history of CAD/CABG x3 vessel/4 prior cardiac stents Nausea suspect GERD with hiatal hernia Hypertension Hyperlipidemia Diabetes mellitus type 2 insulin dependent BPH Brief History of Present Illness: 74-year-old male with history of hypertension, diabetes mellitus type 2 insulin dependent, CAD with prior CABG and stents, hyperlipidemia. Patient reports chest pain over the last 2 days. It comes and goes. It is mainly to the left side. It is associated with nausea. No significant shortness of breath noted. No palpitations noted. Patient denies any abdominal pain. Patient reports history of CABG x3 vessel 25 years ago. He has had 4 stents placed since that time. Last stent placed about 6-12 months ago at [facility]. 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 In the ER patient evaluated. No significant ST changes noted. Initial troponin less than 0.02. Sodium 137, potassium 4.3, BUN of 21, creatinine 1.0 with a GFR 73. Glucose 136. Urinalysis and chest x-ray unremarkable. CBC stable. Total bilirubin 1.5, AST 56. Lipase within normal range. CT chest pending at this time. Patient admitted for further evaluation. When I saw the patient in the ER, his chest pain improved including nausea. He was given medication for nausea in the ER. Patient overall stable. Hospital Course: Patient presented with chest pain. Patient with history of CAD/CABG x3 vessel and for prior cardiac stents. Patient was admitted for further evaluation. Cardiac enzymes unremarkable. Patient was seen and evaluated by Cardiology. Cardiac stress test was performed. Cardiac stress test showed no stress- induced ischemia. Normal ejection fraction noted. Echocardiogram also within normal range. At discharge patient will continue with aspirin and patient will continue with his current medications of Lipitor 40 mg daily, carvedilol 6.25 mg 1 pill twice daily, and losartan 100 mg daily. Recommendation is for the patient to follow up with his farm operations technical director in 1-2 weeks to follow up this hospitalization. Patient also had mild nausea. CT scan revealed small hiatal hernia. Patient likely with underlying GERD. This may be the cause of his chest pain. At discharge patient will be started on Protonix 40 mg daily. GERD diet will be provided. Recommend follow up with GI as an outpatient to further evaluate. Patient may require EGD evaluation as an outpatient. Patient with hypertension. This has remained stable. At discharge he will continue with his current medications of carvedilol 6.25 mg 1 pill twice daily and losartan 100 mg daily. Patient with diabetes mellitus type 2 insulin dependent. This has remained stable. At discharge he will continue with insulin 70/30 22 units subcu twice daily and metformin 1000 mg 1 pill twice daily. Recommend follow up with his PCP to further address. Patient with hyperlipidemia. Lipid panel within normal range. At discharge patient will continue with Lipitor 40 mg daily. Patient with BPH. This has remained stable. At discharge he will continue with Flomax 0.4 mg daily. Vital Signs/Physical Exam: Temp Pulse Resp BP Pulse Ox 97.9 F 54 17 137/63 99 05/28/19 08:00 05/28/19 08:00 05/28/19 08:00 05/28/19 08:00 05/28/19 08:00 General: Alert, In no apparent distress, Oriented x3, Cooperative HEENT: Atraumatic Neck: Supple Respiratory: Clear to auscultation bilaterally, Normal air movement Cardiovascular: Normal pulses, Regular rate/rhythm Gastrointestinal: Normal bowel sounds, Soft and benign, Non-distended, No tenderness, No masses, No rebound, No guarding Musculoskeletal: No erythema, No tenderness, No warmth Integumentary: No tenderness/swelling, No erythema, No warmth, No cyanosis Neurological: Normal speech, Normal strength at 5/5 x4 extr, Normal tone, Normal affect Laboratory Data at Discharge: WBC 3.1 K/uL (4.3-10.9) L 05/27/19 10:48 Hgb 14.7 g/dL (13.6-17.9) 05/27/19 10:48 Hct 43.0 % (39.6-49.0) 05/27/19 10:48 Plt Count 163 K/uL (152-406) 05/27/19 10:48 PT 12.4 SECONDS (9.5-12.5) 05/27/19 10:48 INR 1.05 05/27/19 10:48 Sodium 139 mmol/L (136-145) 05/28/19 02:56 Potassium 4.1 mmol/L (3.5-5.1) 05/28/19 02:56 BUN 18 mg/dL (7-18) 05/28/19 02:56 Creatinine 1.04 mg/dL (0.55-1.3) 05/28/19 02:56 Glucose 142 mg/dL (74-106) H 05/28/19 02:56 Magnesium 2.2 mg/dL (1.8-2.4) 05/28/19 02:56 Total Bilirubin 1.0 mg/dL (0.2-1.0) 05/28/19 02:56 AST 50 U/L (15-37) H 05/28/19 02:56 ALT 55 U/L (12-78) 05/28/19 02:56 Alkaline Phosphatase 191 U/L (45-117) H 05/28/19 02:56 Troponin I < 0.02 ng/mL (0.0-0.045) 05/28/19 02:56 Triglycerides 93 mg/dL (<150) 05/28/19 02:56 Cholesterol 84 mg/dL (<200) 05/28/19 02:56 HDL Cholesterol 48 mg/dL (40-60) 05/28/19 02:56 Cholesterol/HDL Ratio 1.75 05/28/19 02:56 Lipase 120 U/L (73-393) 05/27/19 10:48 Home Medications: Atorvastatin Calcium [Lipitor] 40 mg PO BEDTIME 05/27/19 Carvedilol [Coreg*] 6.25 mg PO BIDWM 05/27/19 Dorzolamide HCl/Timolol Maleat [Cosopt Eye Drops] 1 gtt EACH EYE DAILY 05/27/19 Finasteride [Proscar*] 5 mg PO DAILY 05/27/19 Insulin NPH Hum/Reg Insulin Hm [Novolin 70-30 Flexpen] 22 unit SQ BID 05/27/19 Latanoprost Ophth [Xalatan 0.005%*] 2.5 ml EACH EYE BID 05/27/19 Losartan Potassium [Cozaar] 100 mg PO DAILY 05/27/19 Metformin HCl [Glucophage] 1,000 mg PO BIDWM 05/27/19 Tamsulosin [Flomax*] 0.4 mg PO DAILY 05/27/19 Aspirin [Aspirin EC 81 MG] 81 mg PO DAILY #90 tablet. 05/28/19 Pantoprazole [Protonix Tab*] 40 mg PO DAILY #30 tab 05/28/19 New Medications: Aspirin [Aspirin EC 81 MG] 81 mg PO DAILY #90 tablet. Pantoprazole [Protonix Tab*] 40 mg PO DAILY #30 tab Patient Discharge Instructions: 1. Recommend follow up with his PCP in 1 week to follow up hospitalization. 2. Patient presented with chest pain. Patient with history of CAD/CABG x3 vessel and for prior cardiac stents. Patient was admitted for further evaluation. Cardiac enzymes unremarkable. Patient was seen and evaluated by Cardiology. Cardiac stress test was performed. Cardiac stress test showed no stress-induced ischemia. Normal ejection fraction noted. Echocardiogram also within normal range. At discharge patient will continue with aspirin and patient will continue with his current medications of Lipitor 40 mg daily, carvedilol 6.25 mg 1 pill twice daily, and losartan 100 mg daily. Recommendation is for the patient to follow up with his farm operations technical director in 1-2 weeks to follow up this hospitalization. 3. Patient also had mild nausea. CT scan revealed small hiatal hernia. Patient likely with underlying GERD. This may be the cause of his chest pain. At discharge patient will be started on Protonix 40 mg daily. GERD diet will be provided. Recommend follow up with GI as an outpatient to further evaluate. Patient may require EGD evaluation as an outpatient. 4. Patient with hypertension. This has remained stable. At discharge he will continue with his current medications of carvedilol 6.25 mg 1 pill twice daily and losartan 100 mg daily. 5. Patient with diabetes mellitus type 2 insulin dependent. This has remained stable. At discharge he will continue with insulin 70/30 22 units subcu twice daily and metformin 1000 mg 1 pill twice daily. Recommend follow up with his PCP to further address. 6. Patient with hyperlipidemia. Lipid panel within normal range. At discharge patient will continue with Lipitor 40 mg daily. 7. Patient with BPH. This has remained stable. At discharge he will continue with Flomax 0.4 mg daily. Diet: ADA Activity: Ad charanjit Time spent managing pt's care (in minutes): 55
[2019-05-28 13:31] VITALS: BP 113/64; TEMP 97.7
[2019-05-28] MEDS ORDERED: INFLUENZA VACCINE (for 3y+) 0.5 ML DOSE IMVAC ONE (14:00)
[2019-05-28] MEDS ORDERED: PNEUMOCOCCAL VACCINE 0.5 ML IMVAC ONE (14:00)
--- OUTSIDE RECORDS SUMMARY | 2019-06-21 21:40 | XMS REPORT ---
:1945 [facility] Address [address] [place] [address] Care Team Providers Name Role Phone Unavailable Unavailable Unavailable Problems This patient has no known problems. Allergies, Adverse Reactions, Alerts This patient has no known allergies or adverse reactions. Medications This patient has no known medications.
--- OUTSIDE RECORDS SUMMARY | 2019-06-21 21:40 | XMS REPORT | Summary of Care ---
:1945 Author Organization [facility] Address [address] [place] [address] Care Team Providers Name Role Phone Serg Grijalva MD Primary Care Provider Reason for Visit Reason Comments Refill Request Encounter Details Date Type Department Care Team Description 03/20/2019 Refill [facility] Serg Grijalva MD Refill Request - [address] [address] [place] [address] Allergies No Known Allergiesdocumented as of this encounter (statuses as of 03/20/2019) Medications Medication Sig Dispensed Refills Start Date End Date Status insulin 70/30 inject 28 10 Vial 10 05/03/2015 Active (NOVOLIN 70/30) 100 Units under unit/mL (70-30) the skin 2 injection (two) times daily. DORZOLAMIDE-TIMOLOL INSTILL 1 DROP 30 mL 0 08/01/2017 Active 22.3-6.8 mg/mL IN EACH EYE ophthalmic TWICE DAILY dropsIndications: Glaucoma of both eyes, unspecified glaucoma type aspirin 81 mg Take 1 tablet 90 tablet 3 02/28/2018 Active chewable tablet by mouth daily. prasugrel 10 mg Take 1 tablet 90 tablet 3 04/12/2018 Active tablet by mouth daily. DICLOFENAC 75 mg EC TAKE 1 TABLET 60 tablet 0 11/04/2018 Active tabletIndications: BY MOUTH TWO Left hip pain TIMES DAILY WITH MEALS NITROGLYCERIN 0.4 DISSOLVE 1 25 tablet 1 12/03/2018 Active mg sublingual TABLET UNDER tablet THE TONGUE EVERY 5 MINUTES NEEDED FOR CHEST PAIN carvedilol 6.25 mg Take 1 tablet 180 tablet 1 12/26/2018 Active tablet by mouth 2 (two) times daily with meals. Blood-Glucose Meter Check glucose 1 Kit 0 02/05/2019 Active KitIndications: TID; ICD-10 Type 2 diabetes code E11.9 mellitus without complication, with long-term current use of insulin Lancets Check glucose 300 Each 3 02/05/2019 Active MiscIndications: TID; ICD-10 Type 2 diabetes code E11.9 mellitus without complication, with long-term current use of insulin blood sugar Check glucose 300 Strip 3 02/05/2019 Active diagnostic (BLOOD TID; ICD-10 GLUCOSE TEST) code E11.9 stripIndications: Type 2 diabetes mellitus without complication, with long-term current use of insulin LOSARTAN 100 mg TAKE 1 TABLET 90 tablet 1 02/14/2019 Active tabletIndications: BY MOUTH Dyslipidemia, S/P DAILY CABG (coronary artery bypass graft), Type 2 diabetes mellitus without complication, with long-term current use of insulin, Essential hypertension, Coronary artery disease involving [place] coronary artery of [place] heart without angina pectoris TAMSULOSIN 0.4 mg TAKE 1 CAPSULE 90 capsule 1 02/14/2019 Active 24 hr BY MOUTH capsuleIndications: DAILY Benign prostatic hyperplasia, unspecified whether lower urinary tract symptoms present FINASTERIDE 5 mg TAKE 1 TABLET 90 tablet 1 02/14/2019 Active tabletIndications: BY MOUTH Benign prostatic DAILY hyperplasia, unspecified whether lower urinary tract symptoms present ATORVASTATIN 40 mg TAKE 1 TABLET 90 tablet 0 02/14/2019 Active tablet BY MOUTH AT BEDTIME metFORMIN 1,000 mg TAKE 1 TABLET 180 tablet 1 03/20/2019 Active tabletIndications: BY MOUTH TWO Type 2 diabetes TIMES DAILY mellitus without WITH MEALS complication, with long-term current use of insulin METFORMIN 1,000 mg TAKE 1 TABLET 180 tablet 0 12/02/2018 Discontinued tablet BY MOUTH TWO 9 TIMES DAILY WITH MEALS documented as of this encounter (statuses as of 03/20/2019) Active Problems Problem Noted Date Carotid artery disease 08/21/2018 ACS (acute coronary syndrome) 02/23/[address] scan, colon 08/13/2017 History of colon polyps 08/13/2017 Skin lesions 08/13/2017 Hemangioma of spine 08/09/2017 Liver disease, chronic 06/27/2017 Leukopenia 06/13/2017 Chronic pain of both knees 06/04/2017 Right hip pain 06/04/2017 Chest pain 03/01/2016 Dyslipidemia 12/01/2015 S/P CABG (coronary artery bypass graft) 12/01/2015 Primary open angle glaucoma of both eyes, indeterminate stage 09/17/2015 Pseudophakia of both eyes 09/17/2015 AMD (age-related macular degeneration), bilateral 09/17/2015 Posterior vitreous detachment of both eyes 09/17/2015 Type 2 diabetes mellitus without complication 04/27/2015 Essential hypertension 04/27/2015 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 BPH (benign prostatic hyperplasia) 04/27/2015 Glaucoma 04/27/2015 Abnormal LFTs documented as of this encounter (statuses as of 03/20/2019) Immunizations Name Administration Dates Next Due Influenza High Dose 05/16/2018, 06/04/2017, 04/27/2015 Pneumococcal 13 Conjugate, PCV13 (Prevnar 05/16/2018, 06/04/2017 13) documented as of this encounter Social History Tobacco Use Types Packs/Day Years Used Date Former Smoker Smokeless Tobacco: Never Used Comments: Quit 30 years ago Alcohol Use Drinks/Week oz/Week Comments No 0 Standard drinks or equivalent 0.0 Sex Assigned at Date Recorded Not on file Job Start Date Occupation Industry Not on file Not on file Not on file Travel History Travel Start Travel End No recent travel history available. documented as of this encounter Last Filed Vital Signs Not on filedocumented in this encounter Plan of Treatment Date Type Specialty Care Team Description 04/17/2019 Office Visit Family Medicine Serg Grijalva MD [address] [facility] [place] [phone] 06/05/2019 Office Visit Cardiology [facility] Dooley [facility] [address] [facility] [address] [address] Health Maintenance Due Date Last Done Comments DTaP,Tdap,and Td Vaccines (1 - 1963 Tdap) Zoster Recombinant Vaccine 1994 (SHINGRIX) (1 of 2) Medicare Wellness Visit 2009 FOOT EXAM 12/04/2018 12/04/2017, 12/04/2017, 06/04/2017, Additional history exists INFLUENZA VACCINE 04/13/2019 05/16/2018, 06/04/2017, 04/27/2015 PNEUMOCOCCAL VACCINES 65+ (2 of 2 05/16/2019 05/16/2018, 06/04/2017 - PPSV23) HgA1C 07/16/2019 01/14/2019, 08/21/2018, 05/06/2018, Additional history exists URINE MICROALBUMIN 08/21/2019 08/21/2018, 12/04/2017, 06/05/2017 EYE EXAM 11/12/2019 11/11/2018, 11/20/2017, 12/17/2015, Additional history exists CREATININE (SERUM) 01/15/2020 01/14/2019, 12/13/2018, 08/21/2018, Additional history exists LDL-C 01/15/2020 01/14/2019, 08/21/2018, 07/18/2018, Additional history exists COLONOSCOPY 04/18/2026 04/18/2016 documented as of this encounter Results Not on filedocumented in this encounter Visit Diagnoses Diagnosis Type 2 diabetes mellitus without complication, with long-term current use of insulin - Primary documented in this encounter Insurance Payer Benefit Plan / Subscriber ID Effective Phone Address Type Group Dates [employer] MEDICARE [id number] 2017-Pres Medicare Adv HEALTHCARE - COMPLETE ent HMO MANAGED MEDICARE documented as of this encounter
--- OUTSIDE RECORDS SUMMARY | 2019-06-21 21:40 | XMS REPORT | Summary of Care ---
:1945 Author Organization [facility] Address [address] [place] [address] Care Team Providers Name Role Phone Serg Grijalva MD Primary Care Provider Reason for Visit Reason Comments Rx Concern/Question Encounter Details Date Type Department Care Team Description 03/21/2019 Telephone [facility] Family Serg Grijalva, Rx Concern/ Question Medicine - Noemy [place] [address] [place], [place] [address] [address] [place], [place] [phone] [address] Allergies No Known Allergiesdocumented as of this encounter (statuses as of 03/21/2019) Medications Medication Sig Dispensed Refills Start Date [...] insulin, Essential hypertension, Coronary artery disease involving [place] coronary artery of [place] heart without angina pectoris TAMSULOSIN 0.4 mg [...] use of insulin blood sugar Check glucose 200 Strip 3 03/21/2019 Active diagnostic (BLOOD BID; ICD-10 GLUCOSE TEST) code E11.9 stripIndications: Type 2 diabetes mellitus without complication, with long-term current use of insulin Lancets Check glucose 200 Each 3 03/21/2019 Active MiscIndications: BID; ICD-10 Type 2 diabetes code E11.9 mellitus without complication, with long-term current use of insulin Lancets Check glucose 300 Each 3 02/05/2019 Discontinued MiscIndications: TID; ICD-10 9 Type 2 diabetes code E11.9 mellitus without complication, with long-term current use of insulin blood sugar Check glucose 300 Strip 3 02/05/2019 Discontinued diagnostic (BLOOD TID; ICD-10 9 GLUCOSE TEST) code E11.9 stripIndications: Type 2 diabetes mellitus without complication, with long-term current use of insulin documented as of this encounter (statuses as of 03/21/2019) Active Problems Problem Noted Date Carotid artery [...] Essential hypertension 04/27/2015 Coronary artery disease involving [place] coronary artery without angina 2014 pectoris BPH (benign prostatic hyperplasia) 04/27/2015 Glaucoma 04/27/2015 Abnormal LFTs documented as of this encounter (statuses as of 03/21/2019) Immunizations Name Administration Dates Next Due Influenza [...] Family Medicine Serg Grijalva MD [address] [place] [address] 06/05/2019 Office Visit Cardiology Kam Dooley MD [address] [place] [address] [phone] Health Maintenance Due Date Last Done Comments [...] complication, with long-term current use of insulin documented in this encounter Insurance Payer Benefit Plan / Subscriber ID Effective Phone Address Type Group Dates [employer] MEDICARE [id number] 2017-Pres Medicare Adv HEALTHCARE - COMPLETE ent O MANAGED MEDICARE documented as of this encounter
--- OUTSIDE RECORDS SUMMARY | 2019-06-21 21:41 | XMS REPORT | Summary of Care ---
:1945 Author Organization [facility] Address [address] [place] [address] Care Team Providers Name Role Phone Serg Grijalva MD Primary Care Provider Encounter Details Date Type Department Care Team Description 03/21/2019 Orders Only [facility] Doctor Unassigned, No [address] [facility] [place] [address] [address] [place] [address] Allergies No Known Allergiesdocumented as of this encounter (statuses as of 03/31/2019) Medications Medication Sig Dispensed Refills Start Date End Date Status insulin 70/30 (NOVOLIN inject 28 Units 10 Vial 10 05/03/2015 Active 70/30) 100 unit/mL under the skin 2 (70-30) injection (two) times daily. DORZOLAMIDE-TIMOLOL INSTILL 1 DROP IN 30 mL 0 08/01/2017 Active 22.3-6.8 mg/mL EACH EYE TWICE ophthalmic DAILY dropsIndications: Glaucoma of both eyes, unspecified glaucoma type aspirin 81 mg chewable Take 1 tablet by 90 tablet 3 02/28/2018 Active tablet mouth daily. prasugrel 10 mg tablet Take 1 tablet by 90 tablet 3 04/12/2018 Active mouth daily. DICLOFENAC 75 mg EC TAKE 1 TABLET BY 60 tablet 0 11/04/2018 Active tabletIndications: MOUTH TWO TIMES Left hip pain DAILY WITH MEALS NITROGLYCERIN 0.4 mg DISSOLVE 1 TABLET 25 tablet 1 12/03/2018 Active sublingual tablet UNDER THE TONGUE EVERY 5 MINUTES NEEDED FOR CHEST PAIN carvedilol 6.25 mg Take 1 tablet by 180 tablet 1 12/26/2018 Active tablet mouth 2 (two) times daily with meals. Blood-Glucose Meter Check glucose 1 Kit 0 02/05/2019 Active KitIndications: Type 2 TID; ICD-10 code diabetes mellitus E11.9 without complication, with long-term current use of insulin LOSARTAN 100 mg TAKE 1 TABLET BY 90 tablet 1 02/14/2019 Active tabletIndications: MOUTH DAILY Dyslipidemia, S/P CABG (coronary artery bypass graft), Type 2 diabetes mellitus without complication, with long-term current use of insulin, Essential hypertension, Coronary artery disease involving [place] coronary artery of [place] heart without angina pectoris TAMSULOSIN 0.4 mg 24 TAKE 1 CAPSULE BY 90 capsule 1 02/14/2019 Active hr capsuleIndications: MOUTH DAILY Benign prostatic hyperplasia, unspecified whether lower urinary tract symptoms present FINASTERIDE 5 mg TAKE 1 TABLET BY 90 tablet 1 02/14/2019 Active tabletIndications: MOUTH DAILY Benign prostatic hyperplasia, unspecified whether lower urinary tract symptoms present ATORVASTATIN 40 mg TAKE 1 TABLET BY 90 tablet 0 02/14/2019 Active tablet MOUTH AT BEDTIME metFORMIN 1,000 mg TAKE 1 TABLET BY 180 tablet 1 03/20/2019 Active tabletIndications: MOUTH TWO TIMES Type 2 diabetes DAILY WITH MEALS mellitus without complication, with long-term current use of insulin blood sugar diagnostic Check glucose 200 Strip 3 03/21/2019 Active (BLOOD GLUCOSE TEST) BID; ICD-10 code stripIndications: Type E11.9 2 diabetes mellitus without complication, with long-term current use of insulin Lancets Check glucose 200 Each 3 03/21/2019 Active MiscIndications: Type BID; ICD-10 code 2 diabetes mellitus E11.9 without complication, with long-term current use of insulin documented as of this encounter (statuses as of 03/31/2019) Active Problems Problem Noted Date Carotid artery [...] Essential hypertension 04/27/2015 Coronary artery disease involving [place] coronary artery without angina 2014 pectoris BPH (benign prostatic hyperplasia) 04/27/2015 Glaucoma 04/27/2015 Abnormal LFTs documented as of this encounter (statuses as of 03/31/2019) Immunizations Name Administration Dates Next Due Influenza [...] Family Medicine Serg Grijalva MD [address] [facility] [address] 06/05/2019 Office Visit Cardiology Kam Dooley MD [address] [address] Health Maintenance Due Date Last Done Comments DTaP,Tdap,and Td Vaccines (1 - 1963 Tdap) Zoster Recombinant Vaccine 1994 (SHINGRIX) (1 of 2) Medicare Wellness Visit 2009 FOOT EXAM 12/04/2018 12/04/2017, 12/04/2017, 06/04/2017, Additional history exists INFLUENZA VACCINE (#1) 2019 05/16/2018, 06/04/2017, 04/27/2015 PNEUMOCOCCAL VACCINES 65+ (2 of 2 05/16/2019 05/16/2018, 06/04/2017 - PPSV23) HgA1C 07/16/2019 01/14/2019, 08/21/2018, 05/06/2018, Additional history exists URINE MICROALBUMIN 08/21/2019 08/21/2018, 12/04/2017, 06/05/2017 EYE EXAM 11/12/2019 11/11/2018, 11/20/2017, 12/17/2015, Additional history exists CREATININE (SERUM) 01/15/2020 01/14/2019, 12/13/2018, 08/21/2018, Additional history exists LDL-C 01/15/2020 01/14/2019, 08/21/2018, 07/18/2018, Additional history exists COLONOSCOPY 04/18/2026 04/18/2016 documented as of this encounter Procedures Procedure Name Priority Date/Time Associated Diagnosis Comments DME/SUPPLY JUSTIFICATION Routine 03/21/2019 12:01 AM CDT documented in this encounter Results Not on filedocumented in this encounter Insurance Payer Benefit Plan / Subscriber ID Effective Phone Address Type Group Dates [facility] MEDICARE [id number] 2017-Pres Medicare Adv HEALTHCARE - COMPLETE ent O MANAGED MEDICARE documented as of this encounter
--- OUTSIDE RECORDS SUMMARY | 2019-06-21 21:41 | XMS REPORT | Summary of Care ---
:1945 Author Organization [facility] Address [address] [place] [address] Care Team Providers Name Role Phone Serg Grijalva MD Primary Care Provider Reason for Visit Reason Comments Medicare Annual Wellness Encounter Details Date Type Department Care Team Description 01/21/2019 Pre Visit Outreach [facility] Family Serg Grijalva Medicare Annual Medicine - Noemy Julian MD Wellness [facility] [place] [address] [place] [phone] Allergies No Known Allergiesdocumented as of this encounter (statuses as of 04/21/2019) Medications Medication Sig Dispensed Refills Start Date [...] mouth 2 (two) times daily with meals. losartan 100 mg Take 1 tablet 90 tablet 3 12/24/2017 Discontinued tablet by mouth 9 daily. TAMSULOSIN 0.4 mg TAKE 1 CAPSULE 90 capsule 1 09/09/2018 Discontinued 24 hr BY MOUTH 9 capsuleIndications: DAILY Benign prostatic hyperplasia, unspecified whether lower urinary tract symptoms present FINASTERIDE 5 mg TAKE 1 TABLET 90 tablet 1 09/09/2018 Discontinued tabletIndications: BY MOUTH 9 Benign prostatic DAILY hyperplasia, unspecified whether lower urinary tract symptoms present ATORVASTATIN 40 mg TAKE 1 TABLET 90 tablet 0 12/02/2018 Discontinued tablet BY MOUTH AT 9 BEDTIME METFORMIN 1,000 mg TAKE 1 TABLET 180 tablet 0 12/02/2018 Discontinued tablet BY MOUTH TWO 9 TIMES DAILY WITH MEALS documented as of this encounter (statuses as of 04/21/2019) Active Problems Problem Noted Date Carotid artery [...] Essential hypertension 04/27/2015 Coronary artery disease involving [place] coronary artery without angina 2014 pectoris BPH (benign prostatic hyperplasia) 04/27/2015 Glaucoma 04/27/2015 Abnormal LFTs documented as of this encounter (statuses as of 04/21/2019) Immunizations Name Administration Dates Next Due Influenza [...] Treatment Date Type Specialty Care Team Description 06/05/2019 Office Visit Cardiology Kam Dooley MD [address] [place] [address] [place] [phone] Health Maintenance Due Date Last Done [...] Effective Phone Address Type Group Dates [facility] MEDICARE [id number] 2017-Pres Medicare Adv HEALTHCARE - COMPLETE ent O MANAGED MEDICARE documented as of this encounter
== END 2019-05-28 14:40 | disposition home or self-care (01) ==
LOC: ER 09:55 → ERHOLD 13:04 → 4TH 15:20
PROVIDERS: ADMIT Family Medicine; ATTEND Family Medicine
DX: R07.9 Chest pain, unspecified (principal); I25.10 Atherosclerotic heart disease of native coronary artery without angina pectoris; R11.0 Nausea; I10 Essential (primary) hypertension; E78.5 Hyperlipidemia, unspecified; E11.9 Type 2 diabetes mellitus without complications; N40.0 Benign prostatic hyperplasia without lower urinary tract symptoms; K44.9 Diaphragmatic hernia without obstruction or gangrene; Z95.1 Presence of aortocoronary bypass graft; Z95.5 Presence of coronary angioplasty implant and graft; Z23 Encounter for immunization
CPT/HCPCS: 96361; 93005; 93017; 93306; 87088; 85025; 87086; 80048; 36415 ×2; 83735 ×2; 82550 ×2; 85610; 80061; 82962 ×4; 80076; 87077; 87186; 81003; 84484 ×3; 82553 ×2; 83690; 80053; 83880; 74177; 71045; 90471 ×2; 90670; 78452; 96375; 96374; 99285; Q9967; Q2035; J1650 ×2; J2785; J7030; J2405; A9500; G0378 ×3

== ENCOUNTER 2019-05-31 17:35 | Emergency (ER) | payer MEDICARE ==
--- NOTE | 2019-05-31 19:32 | EDPHYS ---
Physician Documentation [facility] Name: Rudy Mirza Age: 74 yrs Sex: Male : 1945 Arrival Date: 05/31/2019 Time: 17:37 Bed 27 Private MD: ED Physician Mich Beal HPI: 05/31 18:01 This 74 yrs old Male presents to ER via Ambulatory with complaints of Pain pm1 With Urination - blood in urine. 18:01 The patient presents with urinary symptoms, hematuria and pain with urination. Onset: pm1 The symptoms/episode began/occurred today. Modifying factors: The symptoms are alleviated by nothing, the symptoms are aggravated by urinating. Associated signs and symptoms: Pertinent negatives: abdominal pain, constipation, diarrhea, fever, nausea, vomiting. The patient has not experienced similar symptoms in the past. The patient has been recently been admitted at [facility], for apparently unrelated complaints, Patient admitted to hospital 4 days ago for chest pain and was diagnosed with GERD on discharge. Patient had urine collected at admission and the culture report shoed e. coli with a colony count between [id number] and [id number]. Patient did not have any urinary symptoms at admission and discharge. Onset today patient with 2 episodes of blood in his urine. Patient had a CT of abdomen and pelvis [address] days ago [address] did not show any kidney stones or bladder mass. 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 - Social history:: Smoking status: Patient/guardian denies using tobacco. - Ebola Screening: : Patient denies exposure to infectious person Patient denies travel to an Ebola-affected area in the 21 days before illness onset. ROS: 18:01 Constitutional: Negative for fever, chills, and weight loss, Eyes: Negative for injury, pm1 pain, redness, and discharge, ENT: Negative for injury, pain, and discharge, Neck: Negative for injury, pain, and swelling, Cardiovascular: Negative for chest pain, palpitations, and edema, Respiratory: Negative for shortness of breath, cough, wheezing, and pleuritic chest pain, Abdomen/GI: Negative for abdominal pain, nausea, vomiting, diarrhea, and constipation, Back: Negative for injury and pain. 18:01 MS/Extremity: Negative for injury and deformity, Skin: Negative for injury, rash, and discoloration, Neuro: Negative for headache, weakness, numbness, tingling, and seizure. 18:01 : Positive for hematuria, burning with urination, Negative for pelvic pain, flank pain, testicular pain Exam: 18:01 Constitutional: This is a well developed, well nourished patient who is awake, alert, pm1 and in no acute distress. Head/Face: Normocephalic, atraumatic. Neck: Trachea midline, no thyromegaly or masses palpated, and no cervical lymphadenopathy. Supple, full range of motion without nuchal rigidity, or vertebral point tenderness. No Meningismus. Chest/axilla: Normal chest wall appearance and motion. Nontender with no deformity. No lesions are appreciated. Cardiovascular: Regular rate and rhythm with a normal S1 and S2. No gallops, murmurs, or rubs. Normal PMI, no JVD. No pulse deficits. Respiratory: Lungs have equal breath sounds bilaterally, clear to auscultation and percussion. No rales, rhonchi or wheezes noted. No increased work of breathing, no retractions or nasal flaring. Abdomen/GI: Soft, non-tender, with normal bowel sounds. No distension or tympany. No guarding or rebound. No evidence of tenderness throughout. Back: No spinal tenderness. No costovertebral tenderness. Full range of motion. Skin: Warm, dry with normal turgor. Normal color with no rashes, no lesions, and no evidence of cellulitis. MS/ Extremity: Pulses equal, no cyanosis. Neurovascular intact. Full, normal range of motion. 18:01 Neuro: Orientation: is normal, Motor: is normal, moves all fours. Vital Signs: 17:50 BP 154 / 83; Pulse 72; Resp 16; Temp 98.0(TE); Pulse Ox 97% on R/A; Weight 79.38 kg; ss Height 5 ft. 7 in. (170.18 cm); Pain 10/10; 19:57 BP 161 / 80; Pulse 81; Resp 16; Pulse Ox 100% on R/A; tr5 17:50 Body Mass Index 27.41 (79.38 kg, 170.18 cm) ss MDM: 18:02 Patient medically screened. pm1 18:02 ED course: Discussed plan of care with daughter and son. Patient with CT abd/pelvis pm1 with contrast 4 days ago. No presence of kidney stones or masses. Patient with hematuria with burning with urination. Therefore no CT indicated at this time. 19:11 Data reviewed: vital signs. Data interpreted: Pulse oximetry: on room air is 97 %. pm1 Interpretation: normal. 19:30 Counseling: I had a detailed discussion with the patient and/or guardian regarding: the pm1 historical points, exam findings, and any diagnostic results supporting the discharge/admit diagnosis, lab results, the need for outpatient follow up, to return to the emergency department if symptoms worsen or persist or if there are any questions or concerns that arise at home. 19:47 ED course: Urine culture reviewed from admission. Patient was not discharged with any pm1 antibiotics because colony count was between 10K and 100K. Additionally patient did not have any urinary symptoms. Will discharge the patient home with susceptible antibiotic and instructed patient to follow up with urology . 05/31 17:50 Order name: Urine Microscopic Only pm1 05/31 19:47 Order name: Urine Culture pm1 05/31 18:01 Order name: Bladder Scanner; Complete Time: 18:33 pm1 Administered Medications: 19:53 Drug: Rocephin (cefTRIAXone) 1 grams Route: IM; Site: right ventrogluteal; tr5 19:54 Follow up: Response: Medication administered at discharge. tr5 Disposition: 05/31/19 19:31 Discharged to Home. Impression: Hematuria, Urinary tract infection, site not specified. - Condition is Stable. - Discharge Instructions: Hematuria, Adult, Urinary Tract Infection, Adult. - Prescriptions for Augmentin 875- 125 mg Oral Tablet - take 1 tablet by ORAL route every 12 hours for 10 days; 20 tablet. - Medication Reconciliation Form, Thank You Letter, Antibiotic Education, Prescription Opioid Use form. - Follow up: Emergency Department; When: As needed; Reason: Worsening of condition. Follow up: Oralia Shannon MD; When: 2 - 3 days; Reason: Recheck today's complaints, Continuance of care, Re-evaluation by your physician. - Problem is new. - Symptoms have improved. Signatures: Dispatcher [employer] EDMS Amena Groves, RN RN ss Sarath Valencia NP [employer] pm1 Smith Ayala RN RN tr5 Corrections: (The following items were deleted from the chart) 19:58 19:31 05/31/2019 19:31 Discharged to Home. Impression: Hematuria; Urinary tract tr5 infection, site not specified. Condition is Stable. Forms are Medication Reconciliation Form, Thank You Letter, Antibiotic Education, Prescription Opioid Use. Follow up: Emergency Department; When: As needed; Reason: Worsening of condition. Follow up: Oralia Shannon; When: 2 - 3 days; Reason: Recheck today's complaints, Continuance of care, Re-evaluation by your physician. Problem is new. Symptoms have improved. pm1
--- NOTE | 2019-05-31 19:32 | ER ---
Nurse's Notes [facility] Name: Rudy Mirza Age: 74 yrs Sex: Male : 1945 Arrival Date: 05/31/2019 Time: 17:37 Bed 27 Private MD: Diagnosis: Hematuria;Urinary tract infection, site not specified Presentation: 05/31 17:48 Presenting complaint: Patient states: blood in urine and pain with urination that began ss this morning. Transition of care: patient was not received from another setting of care. Onset of symptoms was May 31, 2019. Risk Assessment: Do you want to hurt yourself or someone else? Patient reports no desire to harm self or others. Initial Sepsis Screen: Does the patient meet any 2 criteria? No. Patient's initial sepsis screen is negative. Does the patient have a suspected source of infection? No. Patient's initial sepsis screen is negative. Care prior to arrival: None. 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 - Social history:: Smoking status: Patient/guardian denies using tobacco. - Ebola Screening: : Patient denies exposure to infectious person Patient denies travel to an Ebola-affected area in the 21 days before illness onset. Screenin:10 Abuse screen: Denies threats or abuse. Nutritional screening: No deficits noted. tr5 Tuberculosis screening: No symptoms or risk factors identified. Fall Risk None identified. Assessment: 18:10 General: Appears uncomfortable. Pain: Complains of pain in pelvis. Neuro: Level of tr5 Consciousness is awake, alert, obeys commands, Oriented to person, place, time, New Order Clerk are equal bilaterally. Cardiovascular: Heart tones present Capillary refill < 3 seconds Pulses are all present. Edema is absent. Respiratory: Airway is patent Respiratory effort is even, unlabored, Respiratory pattern is regular, symmetrical. GI: No signs and/or symptoms were reported involving the gastrointestinal system. : Reports burning with urination, Blood in urine. EENT: No signs and/or symptoms were reported regarding the EENT system. Derm: No signs and/or symptoms reported regarding the dermatologic system. Musculoskeletal: No signs and/or symptoms reported regarding the musculoskeletal system. 19:00 Reassessment: Patient appears in no apparent distress at this time. Patient and/or tr5 family updated on plan of care and expected duration. Pain level reassessed. Patient is alert, oriented x 3, equal unlabored respirations, skin warm/dry/pink. Vital Signs: 17:50 BP 154 / 83; Pulse 72; Resp 16; Temp 98.0(TE); Pulse Ox 97% on R/A; Weight 79.38 kg; ss Height 5 ft. 7 in. (170.18 cm); Pain 10/10; 19:57 BP 161 / 80; Pulse 81; Resp 16; Pulse Ox 100% on R/A; tr5 17:50 Body Mass Index 27.41 (79.38 kg, 170.18 cm) ED Course: 17:37 Patient arrived in ED. as 17:39 Sarath Valencia NP is PHCP. pm1 17:39 Mich Beal MD is Attending Physician. pm1 17:49 Triage completed. ss 17:50 Arm band placed on right wrist. ss 17:54 Smith Ayala, GRZEGORZ is Primary Nurse. tr5 18:10 Bed in low position. Call light in reach. Side rails up X 1. tr5 18:41 Bladder scan completed. 38ml. tr5 19:31 Oralia Shannon MD is Referral Physician. pm1 19:55 No provider procedures requiring assistance completed. Patient did not have IV access tr5 during this emergency room visit. Administered Medications: 19:53 Drug: Rocephin (cefTRIAXone) 1 grams Route: IM; Site: right ventrogluteal; tr5 19:54 Follow up: Response: Medication administered at discharge. tr5 Outcome: 19:31 Discharge ordered by . pm1 19:55 Discharged to home ambulatory. tr5 19:55 Condition: stable 19:55 Discharge instructions given to patient, family, Instructed on discharge instructions, follow up and referral plans. medication usage, Demonstrated understanding of instructions, follow-up care, medications, Prescriptions given X 1. 19:58 Patient left the ED. tr5 Addendum: 06/03/2019 09:32 Addendum: Culture Results: Positive urine culture. No further action required. Bacteria s s sensitive to prescribed antibiotic. Signatures: Ann Shen Shelby, RN RN ss Sarath Valencia, ELLIE LAUNCH OPERATOR pm1 Smith Ayala RN RN tr5
[2019-05-31] MEDS ORDERED: CEFTRIAXONE/SWI 1gm 1 GM/10 ML SYR ONE (19:46)
[2019-05-31 20:05] VITALS: TEMP 98
[2019-05-31 20:06] VITALS: BP 161/80; O2SAT 100
[2019-05-31 20:15] LABS: Urine Bacteria >50 /HPF (NONE SEEN); Urine Culture Reflex Order NOT NEEDED; Urine RBC TNTC /HPF (NONE SEEN)
== END 2019-05-31 19:58 | disposition home or self-care (01) ==
LOC: ER 17:35
DX: N39.0 Urinary tract infection, site not specified (principal); I10 Essential (primary) hypertension; Z95.818 Presence of other cardiac implants and grafts
CPT/HCPCS: 87088; 87086; 87077; 87186; 81015; 96372; 99283; J0696